=== PATIENT | male | born 1975 | race American Indian/Alaskan Native ===

== ENCOUNTER 2016-09-30 12:30 | Inpatient (IN) | payer OTHER ==
[2016-09-30] MEDS ORDERED: Albuterol-Ipratrop 3 mg / 0.5 (3 ml) UD IH STA ×2 (12:32→15:18)
[2016-09-30] MEDS ORDERED: Magnesium Sulfate 2 GM in Sodium Chloride 0.9% 100 ML IVPB ONE (12:33)
[2016-09-30] MEDS ORDERED: EPINEPHrine 1 mg/ml (1:1000) Inj ONE (12:33)
[2016-09-30] MEDS ORDERED: EPINEPHrine 1 mg/ml (1:1000) Inj SC STA (12:34)
[2016-09-30] MEDS ORDERED: Levalbuterol 1.25 MG/3 ML Inhal Soln UD IH STA (12:34)
[2016-09-30] MEDS ORDERED: Ipratropium 0.02% Inhal Soln (0.5 mg/2.5 ml) UD IH STA (12:34)
[2016-09-30] MEDS ORDERED: Albuterol-Ipratrop 3 mg / 0.5 (3 ml) UD ONE (12:35)
[2016-09-30] MEDS ORDERED: Sodium Chloride 0.9% 1,000 ML IV STA ×2 (12:36→16:20)
[2016-09-30 12:40] VITALS: BMI 24.3
[2016-09-30] MEDS ORDERED: Etomidate 20 mg/10ml Inj IV ONE (12:41)
[2016-09-30] MEDS ORDERED: Succinylcholine 200 mg/10 ml Inj IV ONE (12:42)
--- NOTE | 2016-09-30 12:43 | ED PDOC ---
Arrival/HPI - General Time Seen by Provider: 09/30/16 12:31 Historian: Patient - History of Present Illness Narrative History of Present Illness (Text): 09/30/16 12:40 A 41 year old male, whose past medical history includes asthma and heroin use, was brought into the emergency department by EMS for worsening shortness of breath since last night. Patient notes associated chest tightness and non- productive cough. Patient notes subjective fevers, nausea, non-bilious non- bloody vomiting and abdominal discomfort. Patient admits to sniffing heroin earlier this morning. Patient denies any diarrhea, urinary symptoms, headache, dizziness, suicidal ideation, homicidal ideation or any other complaints. Time/Duration: Other (Last night) Symptom Course: Worsening Quality: Other Context: Home Past Medical History - Provider Review Nursing Documentation Reviewed: Yes Family/Social History - Physician Review Nursing Documentation Reviewed: Yes Family/Social History: No Known Family HX Allergies/Home Meds Allergies/Adverse Reactions: Allergies No Known Allergies Allergy (Unverified 09/30/16 12:32) Home Medications: Home Meds Medication Instructions Recorded Confirmed Albuterol Sulfate [Proventil Hfa] 0.09 mg IH PRN PRN 09/30/16 09/30/16 Review of Systems - Physician Review All systems were reviewed & negative as marked: Yes - Review of Systems Constitutional: Fevers Eyes: absent: Vision Changes ENT: Normal Respiratory: SOB, Cough. absent: Sputum Cardiovascular: Chest Pain Gastrointestinal: Abdominal Pain, Nausea, Vomiting. absent: Diarrhea Genitourinary Male: absent: Dysuria, Frequency, Hematuria, Urinary Output Changes Neurological: absent: Headache, Dizziness Psychiatric: absent: Suicidal Ideation (/homicidal ideation) Physical Exam Vital Signs Temp Pulse Resp BP Pulse Ox 09/30/16 14:01 98.7 F 124 H 18 143/80 100 09/30/16 13:15 128 H 14 126/81 100 09/30/16 12:32 17 09/30/16 12:31 135 H 22 183/113 H 95 Temperature: Afebrile Blood Pressure: Hypertensive Pulse: Tachycardic Respiratory Rate: Tachypneic Appearance: Positive for: Ill-Appearing, Uncomfortable, Other (Severely diaphoretic and tachypneic, unable to speak full sentences) Pain Distress: None Mental Status: Positive for: Alert and Oriented X 3 - Systems Exam Head: Present: Atraumatic, Normocephalic Pupils: Present: PERRL Conjunctiva: Present: Normal Mouth: Present: Moist Mucous Membranes Pharnyx: Present: Normal. No: ERYTHEMA, EXUDATE Respiratory/Chest: Present: Respiratory Distress, Accessory Muscle Use, Wheezes (Diffuse wheezing), Decreased Breath Sounds, Retracting, Tachypneic. No: Good Air Exchange (Very poor air entry) Cardiovascular: Present: Normal S1, S2, Tachycardic. No: Murmurs Abdomen: Present: Normal Bowel Sounds. No: Tenderness, Distention, Peritoneal Signs Upper Extremity: Present: Normal Inspection. No: Cyanosis, Edema Lower Extremity: Present: Normal Inspection. No: Edema Neurological: Present: GCS=15, CN II-XII Intact Skin: Present: Warm, Normal Color, Diaphoretic. No: Rashes Psychiatric: Present: Alert, Oriented x 3, Anxious (anxiety appropriate for acuity of medical condition.) Medical Decision Making ED Course and Treatment: 09/30/16 12:40 Impression: A 41 year old male with shortness of breath, cough and chest tightness. Patient notes subjective fever, nausea, vomiting, and abdominal pain. On exam, there is poor entry with diffuse wheezing, tachypnea, tachycardia and severely diaphoretic. Differential Diagnosis included but are not limited to: Asthma exacerbation vs. pneumonia Plan: -- Chest xray -- EKG -- Labs -- Blood culture -- Urinalysis -- Duoneb, Epinephrine, Pepcid, Atrovent, Xopenex, Magnesium sulfate, Solumedrol , Zofran and IV fluids -- Reassess and disposition Progress Notes: PROCEDURE: INTUBATION Performed by the emergency provider Time: 12:49 Timeout: A timeout to verify the correct patient, procedure, and site was performed. Indication: Severely poor air entry Pre-oxygenation: 100% NRB / Bipap for several minutes (not tolerating) Medications: etomidate 20mg / succinylcholine 100 mg ETT Size: 8 Confirmation: Cords directly visualized as tube passed, good bilateral breath sounds, positive CO2 detector color change, tube fogging, adequate chest rise, improving pulse oximetry reading, improved skin color, and absence of gastric sounds. ETT Secured: The cuff was inflated and the tube was secured appropriately at a distance of 23 cm at the lip. Post-Procedure: There were no immediate complications. CXR Confirmation: Yes 09/30/16 12:56 EKG shows sinus tachycardia at 150 BPM with a right axis deviation, nonspecific ST/T changes, right QTc 518. Interpreted by me. Report Date : 09/30/2016 13:22:02 Procedure: Chest xray Dictator : Marc England MD IMPRESSION: In situ ETT, tip of which lies approximately 6.2 cm above dinh. Questionable minimal linear atelectasis left lower lung field. Lung katz are otherwise clear. 09/30/16 14:26 Patient's history is noted presenting with severe asthma exacerbation; given epi , magnesium, and nebs upon presentation, along with solumedrol. Bipap placed and within minutes, patient's respiratory status continued to decline and tiring out. Decision made to intubate patient. ETT tube procedure noted above. Case was discussed with groundwater monitoring technician physician, Dr. Echols, who will admit the patient to his service. Case discussed with Dr. Doll, who will admit the patient to the ICU. - Critical Care Critical Care Minutes: 30 minutes - RAD Interpretation Radiology Orders: 09/30/16 12:35 CHEST PORTABLE [RAD] Stat - Medication Orders Current Medication Orders: Albuterol/Ipratropium (Duoneb 3 Mg/0.5 Mg (3 Ml) Ud) 3 ml IH Q4H [facility] Last Admin: 09/30/16 14:18 Dose: 3 ml Heparin Sodium (Porcine) (Heparin) 5,000 units SC Q8H JOBY PRN Reason: Protocol Last Admin: 09/30/16 14:22 Dose: 5,000 units Propofol (Diprivan) 1,000 mg in 100 mls @ 2.245 mls/hr IV .Q24H PRN; Protocol; 5 MCG/KG/MIN PRN Reason: Agitation Last Admin: 09/30/16 13:30 Dose: 66.8 mcg/kg/min, 29.997 mls/hr Methylprednisolone (Solu-Medrol) 40 mg IVP Q8H [facility] Last Admin: 09/30/16 14:20 Dose: Pantoprazole Sodium (Protonix Inj) 40 mg IVP DAILY [facility] Last Admin: 09/30/16 14:22 Dose: 40 mg Discontinued Medications Albuterol/Ipratropium (Duoneb 3 Mg/0.5 Mg (3 Ml) Ud) 3 ml IH STAT STA Stop: 09/30/16 12:33 Last Admin: 09/30/16 13:00 Dose: 3 ml Albuterol/Ipratropium (Duoneb 3 Mg/0.5 Mg (3 Ml) Ud) Confirm Administered Dose 9 ml .ROUTE .STK-MED ONE Stop: 09/30/16 12:36 Last Admin: 09/30/16 13:00 Dose: 9 ml Epinephrine HCl (Epinephrine) 0.3 mg SC STAT STA Stop: 09/30/16 12:35 Last Admin: 09/30/16 13:00 Dose: 0.3 mg Etomidate (Amidate) Confirm Administered Dose 20 mg IV .STK-MED ONE Stop: 09/30/16 12:42 Last Admin: 09/30/16 13:12 Dose: Famotidine (Pepcid) 20 mg IVP STAT STA Stop: 09/30/16 12:35 Last Admin: 09/30/16 13:03 Dose: 20 mg Magnesium Sulfate 2 gm/ Sodium (Chloride) 104 mls @ 102 mls/hr IVPB ONCE ONE Stop: 09/30/16 13:34 Last Admin: 09/30/16 13:05 Dose: 102 mls/hr Sodium Chloride (Sodium Chloride 0.9%) 1,000 mls @ 999 mls/hr IV .Q1H1M STA Stop: 09/30/16 13:36 Last Admin: 09/30/16 13:07 Dose: 999 mls/hr Propofol (Diprivan) Confirm Administered Dose 1,000 mg in 100 mls @ ud .ROUTE .STK-MED ONE Stop: 09/30/16 12:50 Last Admin: 09/30/16 13:00 Dose: 30 mg Ipratropium [place] (Atrovent) 0.5 mg IH STAT STA Stop: 09/30/16 12:35 Last Admin: 09/30/16 13:00 Dose: 0.5 mg Levalbuterol HCl (Xopenex) 1.25 mg IH STAT STA Stop: 09/30/16 12:35 Last Admin: 09/30/16 13:05 Dose: 1.25 mg Methylprednisolone (Solu-Medrol) 125 mg IVP STAT STA Stop: 09/30/16 12:33 Last Admin: 09/30/16 13:00 Dose: 125 mg Ondansetron HCl (Zofran Inj) 4 mg IVP STAT STA Stop: 09/30/16 12:35 Last Admin: 09/30/16 13:00 Dose: 4 mg Succinylcholine Chloride (Quelicin) Confirm Administered Dose 200 mg IV .STK- MED ONE Stop: 09/30/16 12:43 Last Admin: 09/30/16 13:06 Dose: 200 mg - Scribe Statement The provider has reviewed the documentation as recorded by the Brigid Ring Provider Scribe Attestation: All medical record entries made by the Brigid were at my direction and personally dictated by me. I have reviewed the chart and agree that the record accurately reflects my personal performance of the history, physical exam, medical decision making, and the department course for this patient. I have also personally directed, reviewed, and agree with the discharge instructions and disposition. Disposition/Present on Arrival - Present on Arrival Any Indicators Present on Arrival: No - Disposition Have Diagnosis and Disposition been Completed?: Yes Diagnosis: Asthma exacerbation Disposition: HOSPITALIZED Disposition Time: 12:49 Patient Plan: Admission, ICU Condition: CRITICAL
[2016-09-30] MEDS ORDERED: Propofol 10 mg/ml 1,000 MG/100 ML VIAL ONE (12:49)
[2016-09-30 13:06] LABS: ADD MANUAL DIFF? NO
[2016-09-30 13:17] LABS: BASO # 0.05 K/mm3 (0.0-2.0); BASO % 0.4 % (0.0-3.0); EOS # 0.7 (0.0-0.7); EOS % 6.2 % (1.5-5.0); GRAN % 59.6 % (50.0-68.0); HEMATOCRIT 45.5 % (42.0-52.0); LYMPH # 3.3 (1.2-3.4); LYMPH % 27.3 % (22.0-35.0); MEAN CORPUSCULAR HEMOGLOBIN 31.9 pg (25.0-35.0); MEAN CORPUSCULAR HGB CONC 33.6 g/dl (31.0-37.0); MEAN PLATELET VOLUME 9.2 fl (7.0-11.0); MONO # 0.8 (0.1-0.6); MONO % 6.5 % (1.0-6.0); PLATELET COUNT 424 10^3/uL (120.0-450.0); RED CELL DISTRIBUTION WIDTH 12.2 % (11.5-14.5); WHITE BLOOD COUNT 11.9 10^3/ul (4.5-11.0)
--- NOTE | 2016-09-30 13:23 | RAD ---
HISTORY: sob COMPARISON: No prior. FINDINGS: LUNGS: In situ ETT, tip of which lies approximately 6.2 cm above dinh. Questionable minimal linear atelectasis left lower lung field. Lung katz are otherwise clear. PLEURA: No significant pleural effusion identified, no pneumothorax apparent. CARDIOVASCULAR: Normal. OSSEOUS STRUCTURES: No significant abnormalities. VISUALIZED UPPER ABDOMEN: Normal. OTHER FINDINGS: None. IMPRESSION: In situ ETT, tip of which lies approximately 6.2 cm above dinh. Questionable minimal linear atelectasis left lower lung field. Lung katz are otherwise clear.
[2016-09-30 13:32] LABS: URINE BILIRUBIN NEGATIVE (NEGATIVE); URINE BLOOD TRACE-INTACT (NEGATIVE); URINE GLUCOSE (UA) NEGATIVE (NEGATIVE); URINE KETONE NEGATIVE (NEGATIVE); URINE LEUKOCYTE ESTERASE NEGATIVE Leu/uL (NEGATIVE); URINE PROTEIN TRACE mg/dL (<30 mg/dL); URINE UROBILINOGEN 0.2 E.U./dL (<1 E.U./dL)
[2016-09-30 13:32] LABS: ARTERIAL BLOOD GAS HCO3 29.6 mmol/L (21-28)
[2016-09-30 13:32] LABS: INR 1.07 (0.93-1.08)
[2016-09-30 13:33] LABS: ARTERIAL BLOOD GAS PH 7.08 (7.35-7.45)
[2016-09-30 13:48] LABS: URINE APPEARANCE CLEAR (CLEAR); URINE COLOR YELLOW (YELLOW)
[2016-09-30 13:50] LABS: ALB/GLOB RATIO 1.2 (1.1-1.8); ALKALINE PHOSPHATASE 54 U/L (38-133); ALT/SGPT 30 U/L (7-56); AST/SGOT 24 U/L (15-59); BILIRUBIN,TOTAL 0.6 mg/dL (0.2-1.3); BLOOD UREA NITROGEN 11 mg/dL (7-21); CALCIUM 8.3 mg/dL (8.4-10.5); CARBON DIOXIDE 27 mmol/L (21-33); CHLORIDE 103 mmol/L (98-107); GFR AFRICAN-AMERICAN > 60; GLUCOSE,RANDOM 221 mg/dL (70-110); LIPASE 24 U/L (23-300); POTASSIUM 4.5 mmol/L (3.6-5.0); SODIUM 139 mmol/L (132-148); TOTAL PROTEIN 7.3 g/dL (5.8-8.3)
[2016-09-30 13:50] LABS: URINE BACTERIA FEW (NEG); URINE EPITHELIAL CELLS 0 - 2 /hpf (0-5); URINE RBC 0 - 2 /hpf (0-2); URINE WBC 0 - 2 /hpf (0-6)
[2016-09-30] MEDS ORDERED: Propofol 10 mg/ml 1,000 MG/100 ML VIAL IV PRN (13:53)
[2016-09-30] MEDS ORDERED: Albuterol-Ipratrop 3 mg / 0.5 (3 ml) UD IH SCH (14:00)
[2016-09-30 14:01] LABS: TROPONIN I < 0.01 ng/mL
[2016-09-30] MEDS: MethylPREDNISolone 40 mg Vial IVP SCH ×2 (14:20→21:18)
[2016-09-30] MEDS: Propofol 10 mg/ml 1,000 MG/100 ML VIAL IV PRN ×3 (15:52→21:56)
--- NOTE | 2016-09-30 16:08 | PN ---
DATE: 09/30/2016 The patient is a 41-year-old gentleman with a history of drug abuse and asthma who presented with severe respiratory distress and was intubated for impending respiratory failure almost immediately in the Emergency Room. He was sedated with propofol and currently is on PRVC with PEEP 5, FiO2 50%, respiratory rate 18, Vt 400. His initial ABG showed severe acute respiratory acidosis with pCO2 approaching 100 and pH 7.08. Apparently, the patient was snorting heroin prior to current admission. No other history is available. It appears that the patient did not have any nausea, vomiting, diarrhea, constipation, chest pain. PAST MEDICAL HISTORY: Asthma. FAMILY HISTORY: Noncontributory. SOCIAL HISTORY: The patient is snorting heroin. HOME MEDICATIONS: Albuterol. ALLERGIES: NKDA. REVIEW OF SYSTEMS: Review of 12 organ system other than mentioned in history of present illness is negative. Chest x-ray: Hyperinflated lungs. No distinct infiltrate. PHYSICAL EXAMINATION: VITAL SIGNS: Temperature 98.7, heart rate 124 (patient is getting continuous nebulizers), blood pressure 143/80, respiratory rate 18, oxygen saturation 100% on mechanical ventilation. HEAD AND NECK: Atraumatic. LUNGS: Scattered and abundant wheezes bilaterally. Ppeak 57, Ppl20-->continue nebs HEART: Regular rate and rhythm. S1, S2 normal. ABDOMEN: Soft, nontender, nondistended. MUSCULOSKELETAL: No C/C/E. NEUROLOGIC: The patient moves all extremities spontaneously. SKIN: Moist. PSYCHIATRIC: The patient is sedated. LABORATORY DATA: WBC 11.9, hemoglobin 15.3, platelet count 424. Sodium 139, potassium 4.5, chloride 103, carbon dioxide 27, BUN 11, creatinine 0.9, glucose 221. AST 24, ALT 30. Troponin less than 0.01. U-tox screen positive for opiates and negative for methadone, barbiturate, PCP, amphetamines, benzodiazepines, cocaine and cannabinoids. ASSESSMENT AND PLAN: This 41-year-old gentleman with status asthmaticus requiring intubation triggered by snorting heroin. At the present time, will proceed with steroids, nebulizers (DuoNeb initially continuously then every 2 hours and then every 4 hours). There are no signs of infection. The patient is afebrile and no distinct infiltrate in the chest x-ray. I will obtain blood culture, urine culture, and procalcitonin; however, we will not start antibiotics empirically. It appears that snorting heroin was a triggering factor for current asthma attack. In terms of ventilator settings, we will avoid hyperventilation to avoid airtrapping, barotrauma, decrease venous return and hypotension. Will continue with of PEEP of 5. We will make sure that I:E ratio remains more than 1:2.5. Will continue with Propofol sedation and add Precedex to improve pt/vent synchrony. Will repeat the ABG in a couple hours and will follow chest x-ray as well. Will continue with IVF. Will continue to target euvolemia, euglycemia, normothermia and oxygen saturation more than 90%. Will continue with DVT and GI prophylaxis. Will continue with daily weaning trial and daily sedation vacation. Will continue with head of bed elevated more than 35 degrees and protective lung ventilation strategy. ccm time 40 min Wade Doll MD cc: [id number] TT: 09/30/2016 16:07:06 Confirmation # [id number] Dictation # [id number] mn MICHAEL
[2016-09-30 16:20] LABS: ABG MECHANICAL RATE 18; ARTERIAL BLOOD GAS HCO3 28.6 mmol/L (21-28); ATERIAL BLOOD GAS PEEP 5
[2016-09-30 16:23] LABS: ARTERIAL BLOOD GAS PH 7.14 (7.35-7.45)
[2016-09-30] MEDS: Dexmedetomidine HCl 4mcg/ml 400 MCG/100 ML BOTTLE IV PRN (16:25)
[2016-09-30] MEDS: Albuterol-Ipratrop 3 mg / 0.5 (3 ml) UD IH SCH ×4 (19:50→23:49)
[2016-09-30] MEDS: Sodium Chloride 0.9% 1,000 ML IV SCH (20:02)
[2016-09-30 20:19] LABS: ARTERIAL BLOOD GAS O2 CAPACITY 18.8 mL/dl (16-24); ARTERIAL BLOOD GAS O2 CONTENT 18.3 ML/dl (15-23); ARTERIAL BLOOD GAS PH 7.27 (7.35-7.45); ARTERIAL BLOOD HGB O2 SAT 94.2 % (95.0-98.0); CARBOXYHEMOGLOBIN 2.3 % (0.5-1.5); HHB 2.7 % (0-5); METHEMOGLOBIN 0.8 % (0.0-3.0)
--- NOTE | 2016-09-30 22:20 | CARD ---
APPROVED REPORT EKG Measurement Heart [id number] PA [id number] <Conclusion> Sinus tachycardia Biatrial enlargement Rightward axis Pulmonary disease pattern Nonspecific ST and T wave abnormality Abnormal ECG
[2016-10-01] MEDS: Propofol 10 mg/ml 1,000 MG/100 ML VIAL IV PRN ×3 (01:38→12:37)
[2016-10-01] MEDS: Albuterol-Ipratrop 3 mg / 0.5 (3 ml) UD IH SCH ×7 (01:49→23:30)
[2016-10-01] MEDS: Dexmedetomidine HCl 4mcg/ml 400 MCG/100 ML BOTTLE IV PRN ×2 (02:46→12:38)
[2016-10-01] MEDS: Sodium Chloride 0.9% 1,000 ML IV SCH ×3 (03:49→19:34)
[2016-10-01] MEDS: MethylPREDNISolone 40 mg Vial IVP SCH (05:16)
[2016-10-01 05:40] LABS: ARTERIAL BLOOD GAS HCO3 27.3 mmol/L (21-28); ARTERIAL BLOOD GAS O2 CAPACITY 17.2 mL/dl (16-24); ARTERIAL BLOOD GAS PH 7.32 (7.35-7.45); ARTERIAL BLOOD HGB O2 SAT 96.4 % (95.0-98.0); CARBOXYHEMOGLOBIN 1.5 % (0.5-1.5)
[2016-10-01 06:10] LABS: ADD MANUAL DIFF? NO
[2016-10-01 06:21] LABS: GRAN # 11.36 (1.4-6.5); GRAN % 84.3 % (50.0-68.0); HEMATOCRIT 37.2 % (42.0-52.0); LYMPH # 0.8 (1.2-3.4); LYMPH % 5.9 % (22.0-35.0); MEAN CELL VOLUME 94.4 fL (80.0-105.0); MEAN CORPUSCULAR HEMOGLOBIN 31.5 pg (25.0-35.0); MEAN CORPUSCULAR HGB CONC 33.3 g/dl (31.0-37.0); MEAN PLATELET VOLUME 8.9 fl (7.0-11.0); MONO # 1.3 (0.1-0.6); MONO % 9.8 % (1.0-6.0); PLATELET COUNT 318 10^3/uL (120.0-450.0); RED CELL DISTRIBUTION WIDTH 12.2 % (11.5-14.5); WHITE BLOOD COUNT 13.5 10^3/ul (4.5-11.0)
[2016-10-01 06:45] LABS: ALB/GLOB RATIO 1.1 (1.1-1.8); ALKALINE PHOSPHATASE 43 U/L (38-133); ALT/SGPT 32 U/L (7-56); AST/SGOT 27 U/L (15-59); BILIRUBIN,TOTAL 0.3 mg/dL (0.2-1.3); BLOOD UREA NITROGEN 11 mg/dL (7-21); CALCIUM 8.3 mg/dL (8.4-10.5); CARBON DIOXIDE 27 mmol/L (21-33); CHLORIDE 105 mmol/L (98-107); GFR AFRICAN-AMERICAN > 60; GLUCOSE,RANDOM 137 mg/dL (70-110); POTASSIUM 4.8 mmol/L (3.6-5.0); SODIUM 138 mmol/L (132-148); TOTAL PROTEIN 6.4 g/dL (5.8-8.3)
--- NOTE | 2016-10-01 07:35 | CON ---
DATE: 10/01/2016 REASON FOR CONSULTATION: Asthma. REFERRING PHYSICIAN: Dr. Echols. History is obtained via extensive discussion with the ICU nurse. I have also reviewed the chart at length. The patient is currently intubated and sedated. The patient is a 41-year-old male with past medical history significant for asthma, heroin abuse, who presented to the Emergency Room yesterday in respiratory distress. Apparently, shortly after sniffing heroin, the patient started to experience increasing shortness of breath at rest, dyspnea on exertion, and cough. There is no history of sputum production. There is a history of chest "tightness." No history of chest pain, coughing up of blood or chest pain - made worse with deep respirations. There is no history of temperatures, chills or infectious exposure. There is no history of night sweats, weight loss or appetite change prior to the above events. No history of leg or calf pains. No history of syncope. The patient was diaphoretic upon presentation to the Emergency Room. No history of travel or trauma. REVIEW OF SYSTEMS: There is a history of nausea and vomiting at home. No diarrhea. No acute urinary symptoms. No new musculoskeletal complaints. Rest of the review of systems is negative. ALLERGIES: No known allergies. SOCIAL HISTORY: Negative for tobacco, negative for alcohol. Positive for heroin abuse. FAMILY HISTORY: Positive for asthma. HOME MEDICATIONS: Include Proventil HFA. PHYSICAL EXAMINATION: GENERAL: The patient is currently intubated and sedated. VITAL SIGNS: Temperature is 99.1, pulse 105, respirations 21/20, blood pressure 94/50. Oxygen saturation on the ventilator is 98%. HEENT: Normocephalic, atraumatic. NECK: No JVD. CARDIOVASCULAR: Positive S1, S2. No S3. LUNGS: Decreased breath sounds at the bases. Scattered bilateral rhonchi and wheezing are appreciated. EXTREMITIES: No clubbing, cyanosis, or edema. GASTROINTESTINAL: Abdomen is soft, nondistended. Bowel sounds are positive. SKIN: No acute rash. NEUROLOGIC: Limited at the present time. PERTINENT LABORATORY DATA: Chest x-ray was done this morning and reviewed. It is not significantly changed from the previous film. There are no significant infiltrates. Official reading - pending. Arterial blood gas was done on assist control of 20, tidal volume 350, FiO2 50%, PEEP of 5. Results are: pH 7.32, pCO2 53, pO2 of 112. CBC: White count 11.9, hemoglobin 15.3, hematocrit 45.5, platelets of 424. Complete metabolic profile: Glucose 221, calcium 8.3. Rest of the metabolic profile is within normal limits. IMPRESSION: 1. Respiratory failure. 2. Status asthmaticus. 3. Acute bronchospasm. 4. Heroin abuse. PLAN: Again, I did discuss the case with the ICU nurse at length. I have also reviewed the chart at length. Apparently, the patient presented to the Emergency Room - shortly after sniffing heroin. On presentation to the Emergency Room, he was in respiratory distress and using accessory muscles for breathing. In addition, the arterial blood gas revealed a severe respiratory acidosis. He was, thus, intubated for airway protection and ventilation. I did review the chest x-ray this morning. It is not significantly changed from yesterday's film, and shows no significant infiltrates. I have also reviewed the arterial blood gas. A significant decrease in the respiratory acidosis is noted. On physical exam, the patient is in moderate bronchospasm. I would continue with the frequent nebulizer treatments and intravenous steroids for now. Repeat a.m. labs are pending. Again, I did discuss the case with the ICU nurse at length. The ICU nurse states that the patient's clinical status is much improved this morning. I will discuss the above with the entire ICU team in the next few moments. I will also discuss the above with Dr. Echols. Thank you very much for this pulmonary consultation. Juan Tate MD cc: [id number] TT: 10/01/2016 07:34:17 Confirmation # [id number] Dictation # [id number] alina RODRIGUEZ
[2016-10-01] MEDS: Insulin Reg-HIGH-Coverage SC SCH ×4 (08:00→21:55)
--- NOTE | 2016-10-01 08:15 | HP ---
I was in the Emergency Room on 09/30. I was called by the ER doctor for admission on the patient. I was there with the carpenter helper maintenance, Dr. Doll, and when I went home to try and dictate, I could not ge t my computer to work to get the information, so I am dictating this morning, 10/01. He is a 41-year-o ld man who, when I got to him, was intubated, with asthma and heroin use. He had a nonproductive cou gh with chest tightness. He has fevers, nausea, nonbilious vomiting. He was sniffing heroin earlier that day. PAST MEDICAL HISTORY: Drug abuse. FAMILY HISTORY: No known family history. ALLERGIES: No known drug allergies. MEDICATIONS: He takes albuterol p.r.n. at home. REVIEW OF SYSTEMS: On the ventilator, difficult to do review of systems. Review of systems by the E R doctor before he was intubated: There are no vision changes. There is shortness of breath with co ughing. He had chest pain. He had abdominal pain, nausea, vomiting. No problems urinating. No hea dache. No suicidal ideation. PHYSICAL EXAMINATION: VITAL SIGNS: He had a 98.7 temp, 135 pulse, 18 respiratory rate to 22 respiratory rate, 183/113 bloo d pressure, 95% O2 sat to100% O2 sat. GENERAL: Head atraumatic, normocephalic. He is on a ventilator. LUNGS: Decreased breath sounds bilaterally, on the ventilator. HEART: Regular rate. ABDOMEN: Soft, positive bowel sounds. EXTREMITIES: Have no edema. SKIN: Intact and warm. NEUROLOGIC: He is intubated. LABORATORY DATA: He had an 11.9 white count, 15.2, hemoglobin, 45.5 hematocrit with 424 platelets. INR is 1.07. He was 7.08, very acidotic on admission 139 sodium, potassium 4.5, BUN 11, creatinine 0 .9, GFR is greater than 60, sugar is 221, calcium is 8.3, total bili is 0.6. AST is 24, ALT is 30, a lk phos 54. Lactate dehydrogenase is 207, troponin is less than 0.01. BNP is 22.5, total protein 7. 3, albumin is 4. He is positive for opiates and said he was inhaling heroin earlier. He will have a consult with pulmonary. He is currently on Diprivan, DuoNeb, heparin, Precedex, Mary nix, IV fluids, Solu-Medrol. He is seen by the carpenter helper maintenance. He is here for asthma, respiratory fail ure, drug abuse. We will check his labs in the morning. Hopefully, we can wean him off the ventilat or in the next 24-48 hours. Brando Echols DO cc: [id number] TT: 10/01/2016 08:15:32 tn
--- NOTE | 2016-10-01 08:22 | PN ---
DATE: 10/01/2016 The patient seen and examined at bedside. He is sedated on propofol and Precedex 0.5 mcg per kilogram per hour. Propofol was just shut off and the patient continued to be on Precedex. He is comfortable, and we are waiting for him to wake up more. PHYSICAL EXAMINATION: VITAL SIGNS: Heart rate 93, oxygen saturation 98%, end-tidal CO2 on the monitor 38, blood pressure 111/59. The patient is on PRVC 450/20/5/50%. HEAD AND NECK: Atraumatic. LUNGS: A few wheezes bilaterally, much better than yesterday. HEART: Regular rate and rhythm. S1, S2 normal. ABDOMEN: Soft, nontender, nondistended. MUSCULOSKELETAL: No C/C/E. NEUROLOGIC: The patient moves all extremities spontaneously. SKIN: Moist. PSYCHIATRIC: The patient is alert and oriented x 3. LABORATORY DATA: WBC 13.5, hemoglobin 12.4, platelet count 318. Sodium 138, potassium 4.8, chloride 105, carbon dioxide 27, BUN 11, creatinine 0.9, glucose 137. AST 27, ALT 32. ABG today 7.32/53/112. MEDICATIONS: DuoNeb every 4, heparin 5000 subQ q. 8, Solu-Medrol 60 mg IV q. 6 , Protonix daily, normal saline 125 mL per hour. ASSESSMENT AND PLAN: This is a 41-year-old gentleman with status asthmaticus, now intubated. Chest x-ray does not show signs of any barotrauma. He is hemodynamically stable. At present time, we will proceed with steroid taper, nebulizers. We will continue with daily chest x-ray and ABGs. His respiratory status improved; however, he still has significant bronchospasm. We will continue with ventilator setting that allows I:E ratio more than 1:2.5. Will continue with PEEP of 5. Will continue with protective lung ventilation strategy. Will continue with euvolemia, euglycemia, normothermia and oxygen saturation more than 90%. If unable to wean today, will start enteral nutrition (trophic). Will continue with DVT and GI prophylaxis. Will continue with head of bed elevated more than 35 degrees. Addendum: patient substantially improved, bronchospasm resolved, extubated to BPAP. Cont Precedex for now but will be weaned off. BP, HR, RR comfortable and stable ccm time 40 min Wade Doll MD cc: [id number] TT: 10/01/2016 08:22:20 Confirmation # [id number] Dictation # [id number] mn MTDD
--- NOTE | 2016-10-01 09:01 | RAD ---
HISTORY: follow up COMPARISON: 09/30/2016 FINDINGS: The endotracheal tube terminates 4.5 cm proximal to the dinh. LUNGS: The lungs are well inflated and clear. PLEURA: No significant pleural effusion identified, no pneumothorax apparent. CARDIOVASCULAR: Normal. OSSEOUS STRUCTURES: No significant abnormalities. VISUALIZED UPPER ABDOMEN: Normal. OTHER FINDINGS: None. IMPRESSION: No acute findings. Endotracheal tube terminates 4.5 cm proximal to the dinh.
--- NOTE | 2016-10-01 09:04 | PN ---
DATE: 10/01/2016 I saw him in the intensive care unit. He is still on the ventilator. He is on Diprivan, DuoNebs, in sulin coverage, Precedex, Protonix, IV fluids and Solu-Medrol. They bumped him up to 60 mg IV q. 6. PHYSICAL EXAMINATION: VITAL SIGNS: Temp 99.1, 105 pulse, 21 respiratory rate, 98% O2 sat on mechanical ventilator. HEENT: His head is atraumatic, normocephalic. HEART: Regular rate. LUNGS: Decreased breath sounds, but clear. ABDOMEN: Soft. EXTREMITIES: No edema. LABORATORY DATA: He has a 13.5 white count, could be from the steroids, 12.4 hemoglobin, 37.2 hemato crit with 318 platelets. Sodium 138, potassium 4.8, BUN 11, creatinine 0.9, GFR is greater than 60, sugar is 137, calcium is 8.3, total bili is 0.3, AST is 27, ALT is 32, alk phos 43, total protein 6.4 . He was positive for opiates. He is being seen by the roll over press operator and the paper tester. There is a chest x-ray pending. He is here for respiratory failure, asthma, acute bronchospasm, heroin use. We will continue with aggressive treatment and care. Check his labs tomorrow. Hopefully, we could w rory him in the next 24 hours. Discussed with the roll over press operator and the paper tester at length. Brando Echols DO cc: [id number] TT: 10/01/2016 09:04:12 Confirmation # [id number] Dictation # [id number] tn
[2016-10-01 15:17] LABS: ARTERIAL BLOOD GAS HCO3 27.7 mmol/L (21-28); ARTERIAL BLOOD GAS O2 CAPACITY 16.9 mL/dl (16-24); ARTERIAL BLOOD GAS O2 CONTENT 16.2 ML/dl (15-23); ARTERIAL BLOOD GAS PH 7.46 (7.35-7.45); ARTERIAL BLOOD HGB O2 SAT 93.7 % (95.0-98.0); CARBOXYHEMOGLOBIN 1.5 % (0.5-1.5); HHB 3.8 % (0-5); METHEMOGLOBIN 0.9 % (0.0-3.0)
--- NOTE | 2016-10-01 15:26 | CARD ---
APPROVED REPORT EXAM: Two-dimensional and M-mode echocardiogram with Doppler and color Doppler. INDICATION Congestive Heart Failure Aortic Valve AoV Peak Jhqljpwh861.0cm/Marleny Peak GR.5mmHg Mitral Valve MV E Sdbegnjh47.0cm/sMV A Fadywpmk97.2cm/sE/A ratio1.1 TDI E/Lateral E'0.0E/Medial E'0.0 LEFT VENTRICLE The left ventricle is normal size. There is normal left ventricular wall thickness. The systolic function is severely impaired. The Ejection Fraction is 25-30%. Infero-lateral hypokinesis Transmitral Doppler flow pattern is Grade I-abnormal relaxation pattern. No left ventricle thrombus noted on this study. RIGHT VENTRICLE The right ventricle is normal size. There is normal right ventricular wall thickness. The right ventricular systolic function is normal. ATRIA The left atrium size is normal. The right atrium size is normal. AORTIC VALVE The aortic valve is not well visualized. MITRAL VALVE The mitral valve is not well visualized. GREAT VESSELS The aortic root is normal in size. The IVC is dilated. PERICARDIAL EFFUSION There is no pericardial effusion. <Conclusion> The left ventricle is normal size. There is normal left ventricular wall thickness. The systolic function is severely impaired. The Ejection Fraction is 25-30%. Infero-lateral hypokinesis Transmitral Doppler flow pattern is Grade I-abnormal relaxation pattern. No left ventricle thrombus noted on this study.
[2016-10-01] MEDS ORDERED: Morphine 2 mg/ml ISec IVP STA (19:53)
[2016-10-02] MEDS ORDERED: Morphine 2 mg/ml ISec IVP STA (01:02)
[2016-10-02] MEDS: Sodium Chloride 0.9% 1,000 ML IV SCH (04:35)
[2016-10-02] MEDS: Albuterol-Ipratrop 3 mg / 0.5 (3 ml) UD IH SCH ×5 (04:56→19:40)
[2016-10-02 05:38] LABS: ARTERIAL BLOOD GAS HCO3 27.6 mmol/L (21-28); ARTERIAL BLOOD GAS O2 CAPACITY 16.8 mL/dl (16-24); ARTERIAL BLOOD GAS O2 CONTENT 16.1 ML/dl (15-23); ARTERIAL BLOOD GAS PH 7.48 (7.35-7.45); ARTERIAL BLOOD HGB O2 SAT 93.8 % (95.0-98.0); CARBOXYHEMOGLOBIN 1.7 % (0.5-1.5); METHEMOGLOBIN 0.5 % (0.0-3.0)
[2016-10-02 06:22] LABS: ADD MANUAL DIFF? NO
[2016-10-02 06:32] LABS: BASO # 0.04 K/mm3 (0.0-2.0); BASO % 0.3 % (0.0-3.0); GRAN # 11.42 (1.4-6.5); GRAN % 86.3 % (50.0-68.0); HEMATOCRIT 39.7 % (42.0-52.0); LYMPH # 0.8 (1.2-3.4); LYMPH % 6.1 % (22.0-35.0); MEAN CORPUSCULAR HEMOGLOBIN 31.6 pg (25.0-35.0); MONO % 7.3 % (1.0-6.0); PLATELET COUNT 340 10^3/uL (120.0-450.0); RED CELL DISTRIBUTION WIDTH 11.5 % (11.5-14.5); WHITE BLOOD COUNT 13.2 10^3/ul (4.5-11.0)
[2016-10-02 06:41] LABS: ALB/GLOB RATIO 1.2 (1.1-1.8); ALKALINE PHOSPHATASE 50 U/L (38-133); ALT/SGPT 34 U/L (7-56); AST/SGOT 35 U/L (15-59); BILIRUBIN,TOTAL 0.7 mg/dL (0.2-1.3); BLOOD UREA NITROGEN 13 mg/dL (7-21); CARBON DIOXIDE 29 mmol/L (21-33); CHLORIDE 106 mmol/L (98-107); GFR AFRICAN-AMERICAN > 60; GLUCOSE,RANDOM 138 mg/dL (70-110); POTASSIUM 3.9 mmol/L (3.6-5.0); SODIUM 143 mmol/L (132-148); TOTAL PROTEIN 6.8 g/dL (5.8-8.3)
[2016-10-02] MEDS ORDERED: Sodium Chloride 0.9% 1,000 ML IV SCH (07:15)
--- NOTE | 2016-10-02 07:52 | PN ---
DATE: 10/02/2016 I saw him in the intensive care unit. He is extubated. He is alert, very lethargic, coughing up con gestion, a lot of phlegm. He is on Diprivan, DuoNeb, heparin, insulin, Precedex, Protonix, IV fluids and IV Solu-Medrol. PHYSICAL EXAMINATION: VITAL SIGNS: Temp 98.9, 86 pulse, 168/86 blood pressure, 24 respiratory rate, 98% O2 sat on 5 liters . HEENT: His head is atraumatic, normocephalic. GENERAL: He is lethargic, difficult to talk. HEART: Regular rate. LUNGS: Congestion bilaterally, changes with cough. ABDOMEN: Soft. EXTREMITIES: No edema. He is still kind of tight. He has a 13.2 white count, 13.5 hemoglobin, 39.7 hematocrit with 340 platelets. INR 1.07. He has a 143 sodium, potassium is 3.9, BUN 13, creatinine 0.8, GFR is greater than 60, sugar is 138, calcium i s 9, total bili is 0.7, AST is 35, ALT is 34, alk phos is 30, total protein 6.8. Urine is clean. He was positive for opiates and I believe heroin when he came in. He is being seen by synchro assembler and blacksmith helper. He has a chest x-ray pending. I am glad he is ex tubated. He is still not good yet. He is here for asthma, respiratory failure and drug abuse. We w abbe continue treatment in the intensive care unit. Hopefully, he will not have to be reintubated. Geovanna denny will check his labs tomorrow, get him out of bed to chair. Brando Echols DO cc: [id number] TT: 10/02/2016 07:51:55 Confirmation # [id number] Dictation # [id number]
--- NOTE | 2016-10-02 07:54 | CP.CCUPN ---
<Yunior Hernandez - Last Filed: 10/02/16 09:25> CCU Subjective - Physician Review Events Since Last Encounter (Free Text): This patient reports no acute events overnight. 10/02/16 07:51 10/02/16 07:53 Subjective (Free Text): Since yesterday the patient has been extubated and has remained extubated. He is currently on 5L nasal cannula. He denies shortness of breath, chest pain, nausea, vomiting or diarrhea. He has no complaints at this time. 10/02/16 07:54 CCU Objective - Vital Signs / Intake & Output Vital Signs (Last 4 hours): Vital Signs Temp Pulse Resp BP Pulse Ox 10/02/16 06:01 86 24 168/86 H 98 10/02/16 06:00 80 18 98 10/02/16 05:00 79 19 164/88 H 100 10/02/16 04:01 77 20 148/68 95 10/02/16 04:00 98.9 F 76 19 95 Intake and Output (Last 8hrs): Intake & Output 10/01/16 10/02/16 10/02/16 22:59 06:59 14:59 Intake Total 1710 1500 Output Total 700 1300 Balance 1010 200 Intake: IV 1710 1500 Left Antecubital 63 Left Forearm 1613 1500 Output: Urine 700 1300 Urethral (Mora) 700 1300 Other: Voiding Method Indwelling Catheter Indwelling Catheter # Bowel Movements 0 - Physical Exam Head: Positive for: Atraumatic, Normocephalic Pupils: Positive for: PERRL Conjunctiva: Positive for: Normal Mouth: Positive for: Moist Mucous Membranes Pharnyx: Positive for: Normal. Negative for: ERYTHEMA, EXUDATE Respiratory/Chest: Positive for: Accessory Muscle Use, Wheezes (Expiratory Wheezes), Decreased Breath Sounds Cardiovascular: Positive for: Normal S1, S2, Tachycardic. Negative for: Murmurs Abdomen: Positive for: Normal Bowel Sounds. Negative for: Tenderness, Distention, Peritoneal Signs Upper Extremity: Positive for: Normal Inspection. Negative for: Cyanosis, Edema Lower Extremity: Positive for: Normal Inspection. Negative for: Edema Neurological: Positive for: GCS=15, CN II-XII Intact Skin: Positive for: Warm, Normal Color, Diaphoretic. Negative for: Rashes Psychiatric: Positive for: Alert, Oriented x 3, Anxious (anxiety appropriate for acuity of medical condition.) - Medications Active Medications: Active Medications Generic Name Dose Route Start Last Admin Trade Name Freq PRN Reason Stop Dose Admin Albuterol/Ipratropium 3 ml 10/01/16 07:30 10/02/16 07:08 Duoneb 3 Mg/0.5 Mg (3 Ml) Ud IH 3 ml [id number] [facility] Administration Heparin Sodium (Porcine) 5,000 units 09/30/16 14:00 10/02/16 06:23 Heparin SC Not Given Q8H [facility] Protocol Propofol 1,000 mg in 100 mls @ 2.245 mls/hr 09/30/16 14:36 10/01/16 15:30 Diprivan IV 0 mcg/kg/min .Q24H PRN 0 mls/hr Agitation Titration Protocol 5 MCG/KG/MIN Dexmedetomidine HCl 400 mcg in 100 mls @ 3.742 mls/hr 09/30/16 16:18 22:54 Precedex 4 Mcg/Ml (100 Ml) IV 0.5 mcg/kg/hr .Q24H PRN 9.355 mls/hr Agitation Titration Protocol 0.2 MCG/KG/HR Sodium Chloride 1,000 mls @ 75 mls/hr 10/02/16 07:15 Sodium Chloride 0.9% IV .[id number] [facility] Insulin Human Regular 0 units 10/01/16 07:30 10/01/16 21:55 Humulin R High SC Not Given ACHS [facility] Protocol Methylprednisolone 40 mg 10/02/16 12:00 Solu-Medrol IVP Q6 [facility] Pantoprazole Sodium 40 mg 09/30/16 14:15 10/01/16 09:19 Protonix Inj IVP 40 mg DAILY [facility] Administration - Patient Studies Lab Studies: Microbiology Studies 09/30/16 15:00 MRSA Culture (Admit) - Final Nose MRSA DETECTED 09/30/16 13:20 Blood Culture - Preliminary Blood-Venous NO GROWTH AFTER 24 HOURS 09/30/16 13:00 Blood Culture - Preliminary Blood-Venous NO GROWTH AFTER 24 HOURS Lab Studies 10/02/16 10/02/16 10/02/16 Range/Units 06:00 06:00 05:33 WBC 13.2 H (4.5-11.0) 10^3/ul RBC 4.27 (3.5-6.1) 10^6/uL Hgb 13.5 L (14.0-18.0) gm/dL Hct 39.7 L (42.0-52.0) % MCV 93.0 (80.0-105.0) fL MCH 31.6 (25.0-35.0) pg MCHC 34.0 (31.0-37.0) g/dl RDW 11.5 (11.5-14.5) % Plt Count 340 (120.0-450.0) 10^3/uL MPV 9.0 (7.0-11.0) fl Gran % 86.3 H (50.0-68.0) % Lymph % (Auto) 6.1 L (22.0-35.0) % Benzie % (Auto) 7.3 H (1.0-6.0) % Eos % (Auto) 0.0 L (1.5-5.0) % Baso % (Auto) 0.3 (0.0-3.0) % Gran # 11.42 H (1.4-6.5) Lymph # 0.8 L (1.2-3.4) Benzie # 1.0 H (0.1-0.6) Eos # 0.0 (0.0-0.7) Baso # 0.04 (0.0-2.0) K/mm3 pCO2 37 (35-45) mm/Hg pO2 63.0 L (80-100) mm/Hg HCO3 27.6 (21-28) mmol/L ABG pH 7.48 H (7.35-7.45) ABG Total CO2 28.7 H (22-28) mmol.L ABG O2 Saturation 95.9 (95-98) % ABG O2 Content 16.1 (15-23) ML/dl ABG Base Excess 4.0 H (-2.0-3.0) mmol/L ABG Hemoglobin 12.2 (11.7-17.4) g/dL ABG Carboxyhemoglobin 1.7 H (0.5-1.5) % POC ABG HHb (Measured) 4.0 (0-5) % ABG Methemoglobin 0.5 (0.0-3.0) % ABG O2 Capacity 16.8 (16-24) mL/dl Hgb O2 Saturation 93.8 L (95.0-98.0) % FiO2 36.0 % Sodium 143 (132-148) mmol/L Potassium 3.9 (3.6-5.0) mmol/L Chloride 106 (98-107) mmol/L Carbon Dioxide 29 (21-33) mmol/L Anion Gap 12 (10-20) BUN 13 (7-21) mg/dL Creatinine 0.8 (0.5-1.4) mg/dL Est GFR ( Amer) > 60 Est GFR (Non-Af Amer) > 60 POC Glucose (mg/dL) (65-110) mg/dL Random Glucose 138 H (70-110) mg/dL Calcium 9.0 (8.4-10.5) mg/dL Total Bilirubin 0.7 (0.2-1.3) mg/dL AST 35 (15-59) U/L ALT 34 (7-56) U/L Alkaline Phosphatase 50 (38-133) U/L Total Protein 6.8 (5.8-8.3) g/dL Albumin 3.7 (3.0-4.8) g/dL Globulin 3.2 gm/dL Albumin/Globulin Ratio 1.2 (1.1-1.8) Procalcitonin (0.19-0.49) NG/ML 10/01/16 10/01/16 10/01/16 Range/Units 17:33 15:13 11:28 WBC (4.5-11.0) 10^3/ul RBC (3.5-6.1) 10^6/uL Hgb (14.0-18.0) gm/dL Hct (42.0-52.0) % MCV (80.0-105.0) fL MCH (25.0-35.0) pg MCHC (31.0-37.0) g/dl RDW (11.5-14.5) % Plt Count (120.0-450.0) 10^3/uL MPV (7.0-11.0) fl Gran % (50.0-68.0) % Lymph % (Auto) (22.0-35.0) % Benzie % (Auto) (1.0-6.0) % Eos % (Auto) (1.5-5.0) % Baso % (Auto) (0.0-3.0) % Gran # (1.4-6.5) Lymph # (1.2-3.4) Benzie # (0.1-0.6) Eos # (0.0-0.7) Baso # (0.0-2.0) K/mm3 pCO2 39 (35-45) mm/Hg pO2 65.0 L (80-100) mm/Hg HCO3 27.7 (21-28) mmol/L ABG pH 7.46 H (7.35-7.45) ABG Total CO2 28.9 H (22-28) mmol.L ABG O2 Saturation 96.1 (95-98) % ABG O2 Content 16.2 (15-23) ML/dl ABG Base Excess 3.7 H (-2.0-3.0) mmol/L ABG Hemoglobin 12.3 (11.7-17.4) g/dL ABG Carboxyhemoglobin 1.5 (0.5-1.5) % POC ABG HHb (Measured) 3.8 (0-5) % ABG Methemoglobin 0.9 (0.0-3.0) % ABG O2 Capacity 16.9 (16-24) mL/dl Hgb O2 Saturation 93.7 L (95.0-98.0) % FiO2 30.0 % Sodium (132-148) mmol/L Potassium (3.6-5.0) mmol/L Chloride (98-107) mmol/L Carbon Dioxide (21-33) mmol/L Anion Gap (10-20) BUN (7-21) mg/dL Creatinine (0.5-1.4) mg/dL Est GFR ( Amer) Est GFR (Non-Af Amer) POC Glucose (mg/dL) 150 H 137 H (65-110) mg/dL Random Glucose (70-110) mg/dL Calcium (8.4-10.5) mg/dL Total Bilirubin (0.2-1.3) mg/dL AST (15-59) U/L ALT (7-56) U/L Alkaline Phosphatase (38-133) U/L Total Protein (5.8-8.3) g/dL Albumin (3.0-4.8) g/dL Globulin gm/dL Albumin/Globulin Ratio (1.1-1.8) Procalcitonin (0.19-0.49) NG/ML 10/01/16 09/30/16 Range/Units 07:50 13:32 WBC (4.5-11.0) 10^3/ul RBC (3.5-6.1) 10^6/uL Hgb (14.0-18.0) gm/dL Hct (42.0-52.0) % MCV (80.0-105.0) fL MCH (25.0-35.0) pg MCHC (31.0-37.0) g/dl RDW (11.5-14.5) % Plt Count (120.0-450.0) 10^3/uL MPV (7.0-11.0) fl Gran % (50.0-68.0) % Lymph % (Auto) (22.0-35.0) % Benzie % (Auto) (1.0-6.0) % Eos % (Auto) (1.5-5.0) % Baso % (Auto) (0.0-3.0) % Gran # (1.4-6.5) Lymph # (1.2-3.4) Benzie # (0.1-0.6) Eos # (0.0-0.7) Baso # (0.0-2.0) K/mm3 pCO2 (35-45) mm/Hg pO2 (80-100) mm/Hg HCO3 (21-28) mmol/L ABG pH (7.35-7.45) ABG Total CO2 (22-28) mmol.L ABG O2 Saturation (95-98) % ABG O2 Content (15-23) ML/dl ABG Base Excess (-2.0-3.0) mmol/L ABG Hemoglobin (11.7-17.4) g/dL ABG Carboxyhemoglobin (0.5-1.5) % POC ABG HHb (Measured) (0-5) % ABG Methemoglobin (0.0-3.0) % ABG O2 Capacity (16-24) mL/dl Hgb O2 Saturation (95.0-98.0) % FiO2 % Sodium (132-148) mmol/L Potassium (3.6-5.0) mmol/L Chloride (98-107) mmol/L Carbon Dioxide (21-33) mmol/L Anion Gap (10-20) BUN (7-21) mg/dL Creatinine (0.5-1.4) mg/dL Est GFR ( Amer) Est GFR (Non-Af Amer) POC Glucose (mg/dL) 144 H (65-110) mg/dL Random Glucose (70-110) mg/dL Calcium (8.4-10.5) mg/dL Total Bilirubin (0.2-1.3) mg/dL AST (15-59) U/L ALT (7-56) U/L Alkaline Phosphatase (38-133) U/L Total Protein (5.8-8.3) g/dL Albumin (3.0-4.8) g/dL Globulin gm/dL Albumin/Globulin Ratio (1.1-1.8) Procalcitonin < 0.05 L (0.19-0.49) NG/ML Laboratory Results - last 24 hr 09/30/16 10/01/16 10/01/16 13:32 07:50 11:28 WBC RBC Hgb Hct MCV MCH MCHC RDW Plt Count MPV Gran % Lymph % (Auto) Benzie % (Auto) Eos % (Auto) Baso % (Auto) Gran # Lymph # Benzie # Eos # Baso # pCO2 pO2 HCO3 ABG pH ABG Total CO2 ABG O2 Saturation ABG O2 Content ABG Base Excess ABG Hemoglobin ABG Carboxyhemoglobin POC ABG HHb (Measured) ABG Methemoglobin ABG O2 Capacity Hgb O2 Saturation FiO2 Sodium Potassium Chloride Carbon Dioxide Anion Gap BUN Creatinine Est GFR ( Amer) Est GFR (Non-Af Amer) POC Glucose (mg/dL) 144 H 137 H Random Glucose Calcium Total Bilirubin AST ALT Alkaline Phosphatase Total Protein Albumin Globulin Albumin/Globulin Ratio Procalcitonin < 0.05 L 10/01/16 10/01/16 10/02/16 15:13 17:33 05:33 WBC RBC Hgb Hct MCV MCH MCHC RDW Plt Count MPV Gran % Lymph % (Auto) Benzie % (Auto) Eos % (Auto) Baso % (Auto) Gran # Lymph # Benzie # Eos # Baso # pCO2 39 37 pO2 65.0 L 63.0 L HCO3 27.7 27.6 ABG pH 7.46 H 7.48 H ABG Total CO2 28.9 H 28.7 H ABG O2 Saturation 96.1 95.9 ABG O2 Content 16.2 16.1 ABG Base Excess 3.7 H 4.0 H ABG Hemoglobin 12.3 12.2 ABG Carboxyhemoglobin 1.5 1.7 H POC ABG HHb (Measured) 3.8 4.0 ABG Methemoglobin 0.9 0.5 ABG O2 Capacity 16.9 16.8 Hgb O2 Saturation 93.7 L 93.8 L FiO2 30.0 36.0 Sodium Potassium Chloride Carbon Dioxide Anion Gap BUN Creatinine Est GFR ( Amer) Est GFR (Non-Af Amer) POC Glucose (mg/dL) 150 H Random Glucose Calcium Total Bilirubin AST ALT Alkaline Phosphatase Total Protein Albumin Globulin Albumin/Globulin Ratio Procalcitonin 10/02/16 10/02/16 06:00 06:00 WBC 13.2 H RBC 4.27 Hgb 13.5 L Hct 39.7 L MCV 93.0 MCH 31.6 MCHC 34.0 RDW 11.5 Plt Count 340 MPV 9.0 Gran % 86.3 H Lymph % (Auto) 6.1 L Benzie % (Auto) 7.3 H Eos % (Auto) 0.0 L Baso % (Auto) 0.3 Gran # 11.42 H Lymph # 0.8 L Benzie # 1.0 H Eos # 0.0 Baso # 0.04 pCO2 pO2 HCO3 ABG pH ABG Total CO2 ABG O2 Saturation ABG O2 Content ABG Base Excess ABG Hemoglobin ABG Carboxyhemoglobin POC ABG HHb (Measured) ABG Methemoglobin ABG O2 Capacity Hgb O2 Saturation FiO2 Sodium 143 Potassium 3.9 Chloride 106 Carbon Dioxide 29 Anion Gap 12 BUN 13 Creatinine 0.8 Est GFR ( Amer) > 60 Est GFR (Non-Af Amer) > 60 POC Glucose (mg/dL) Random Glucose 138 H Calcium 9.0 Total Bilirubin 0.7 AST 35 ALT 34 Alkaline Phosphatase 50 Total Protein 6.8 Albumin 3.7 Globulin 3.2 Albumin/Globulin Ratio 1.2 Procalcitonin Fingerstick Blood Sugar Results: 172 Review of Systems - Cardiovascular Cardiovascular: absent: Chest Pain, Dyspnea - Respiratory Respiratory: Cough, Excessive Mucous Production. absent: Dyspnea - Gastrointestinal Gastrointestinal: absent: Abdominal Pain, Bloating - Musculoskeletal Musculoskeletal: absent: Arthralgias, Back Pain - Neurological Neurological: absent: Abnormal Hearing, Confusion Critical Care Progress Note - Ventilator Checklist Head of Bed 30 Degrees: Yes PUD Prophalyxis: Yes DVT Prophylaxis: Yes - Extremities/Vascular Does the Patient have a Central Venous Catheter?: No Does the Patient need a Central Venous Catheter?: No Does the Patient have a Mora Catheter?: No Does the Patient need a Mora Catheter?: No - Prophylaxis GI Prophylaxis GI: PPI - Prophylaxis DVT Prophylaxis DVT: Heparin SQ - Nutrition Nutrition: Regular Diet Assessment/Plan - Assessment and Plan (Free Text) Assessment: This is a 41M with a PMH of Heroin abuse and asthma who presented to [facility] [place] in status asthmaticus. Neurological: AAOX3 Cardiovascular: Hemodynamically intact, vital signs stable Respiratory: AM CXR Lungs Clear, Continue Nasal cannula titrate at needed with goal pO2 above 80-100, Continue duonebs q4h, continue solumedrol IVP Q6, Nutrition: Patient able to swallow at bedside after extubation will give him a regular diet Genitourinary: Patient without indwelling catheter and voiding Fluids: NS@75 Hematologic: Leukocytosis of 13.2 likely due to steroids Endocrine: No acute processes ID: No acute processes Psychological: Patient is lethargic will discuss rehabilitation before discharge. <Kerry LUND,Kristian H - Last Filed: 10/02/16 13:32> CCU Objective - Vital Signs / Intake & Output Vital Signs (Last 4 hours): Vital Signs Pulse Resp BP Pulse Ox 10/02/16 13:17 119/55 L 10/02/16 10:01 80 24 149/83 100 10/02/16 10:00 77 23 94 L Intake and Output (Last 8hrs): Intake & Output 10/01/16 10/02/16 10/02/16 22:59 06:59 14:59 Intake Total 1710 1500 130 Output Total 700 1300 Balance 1010 200 130 Intake: IV 1710 1500 130 Left Antecubital 63 Left Forearm 1613 1500 Output: Urine 700 1300 Urethral (Mora) 700 1300 Other: Voiding Method Indwelling Catheter Indwelling Catheter Urinal # Bowel Movements 0 - Medications Active Medications: Active Medications Generic Name Dose Route Start Last Admin Trade Name Freq PRN Reason Stop Dose Admin Albuterol/Ipratropium 3 ml 10/01/16 07:30 10/02/16 11:01 Duoneb 3 Mg/0.5 Mg (3 Ml) Ud IH 3 ml [id number] JOBY Administration Budesonide 0.5 mg 10/02/16 20:00 Pulmicort Respules IH [id number] JOBY Heparin Sodium (Porcine) 5,000 units 09/30/16 14:00 10/02/16 13:18 Heparin SC Not Given Q8H [facility] Protocol Propofol 1,000 mg in 100 mls @ 2.245 mls/hr 09/30/16 14:36 10/01/16 15:30 Diprivan IV 0 mcg/kg/min .Q24H PRN 0 mls/hr Agitation Titration Protocol 5 MCG/KG/MIN Dexmedetomidine HCl 400 mcg in 100 mls @ 3.742 mls/hr 09/30/16 16:18 13:10 Precedex 4 Mcg/Ml (100 Ml) IV 0 mcg/kg/hr .Q24H PRN 0 mls/hr Agitation Titration Protocol 0.2 MCG/KG/HR Insulin Human Regular 0 units 10/01/16 07:30 10/02/16 13:04 Humulin R High SC Not Given ACHS [facility] Protocol Lorazepam 1 mg 10/02/16 13:18 Ativan PO Q3H PRN Anxiety Methylprednisolone 40 mg 10/02/16 12:00 10/02/16 13:16 Solu-Medrol IVP 40 mg Q6 [facility] Administration Pantoprazole Sodium 40 mg 09/30/16 14:15 10/02/16 09:44 Protonix Inj IVP 40 mg DAILY JOBY Administration - Patient Studies Lab Studies: Microbiology Studies 09/30/16 13:20 Blood Culture - Preliminary Blood-Venous NO GROWTH AFTER 48 HOURS 09/30/16 13:00 Blood Culture - Preliminary Blood-Venous NO GROWTH AFTER 48 HOURS 09/30/16 15:00 MRSA Culture (Admit) - Final Nose MRSA DETECTED Lab Studies 10/02/16 10/02/16 10/02/16 Range/Units 06:00 06:00 06:00 WBC 13.2 H (4.5-11.0) 10^3/ul RBC 4.27 (3.5-6.1) 10^6/uL Hgb 13.5 L (14.0-18.0) gm/dL Hct 39.7 L (42.0-52.0) % MCV 93.0 (80.0-105.0) fL MCH 31.6 (25.0-35.0) pg MCHC 34.0 (31.0-37.0) g/dl RDW 11.5 (11.5-14.5) % Plt Count 340 (120.0-450.0) 10^3/uL MPV 9.0 (7.0-11.0) fl Gran % 86.3 H (50.0-68.0) % Lymph % (Auto) 6.1 L (22.0-35.0) % Benzie % (Auto) 7.3 H (1.0-6.0) % Eos % (Auto) 0.0 L (1.5-5.0) % Baso % (Auto) 0.3 (0.0-3.0) % Gran # 11.42 H (1.4-6.5) Lymph # 0.8 L (1.2-3.4) Benzie # 1.0 H (0.1-0.6) Eos # 0.0 (0.0-0.7) Baso # 0.04 (0.0-2.0) K/mm3 pCO2 (35-45) mm/Hg pO2 (80-100) mm/Hg HCO3 (21-28) mmol/L ABG pH (7.35-7.45) ABG Total CO2 (22-28) mmol.L ABG O2 Saturation (95-98) % ABG O2 Content (15-23) ML/dl ABG Base Excess (-2.0-3.0) mmol/L ABG Hemoglobin (11.7-17.4) g/dL ABG Carboxyhemoglobin (0.5-1.5) % POC ABG HHb (Measured) (0-5) % ABG Methemoglobin (0.0-3.0) % ABG O2 Capacity (16-24) mL/dl Hgb O2 Saturation (95.0-98.0) % FiO2 % Sodium 143 (132-148) mmol/L Potassium 3.9 (3.6-5.0) mmol/L Chloride 106 (98-107) mmol/L Carbon Dioxide 29 (21-33) mmol/L Anion Gap 12 (10-20) BUN 13 (7-21) mg/dL Creatinine 0.8 (0.5-1.4) mg/dL Est GFR ( Amer) > 60 Est GFR (Non-Af Amer) > 60 POC Glucose (mg/dL) (65-110) mg/dL Random Glucose 138 H (70-110) mg/dL Calcium 9.0 (8.4-10.5) mg/dL Total Bilirubin 0.7 (0.2-1.3) mg/dL AST 35 (15-59) U/L ALT 34 (7-56) U/L Alkaline Phosphatase 50 (38-133) U/L Troponin I 0.02 D ng/mL Total Protein 6.8 (5.8-8.3) g/dL Albumin 3.7 (3.0-4.8) g/dL Globulin 3.2 gm/dL Albumin/Globulin Ratio 1.2 (1.1-1.8) Procalcitonin (0.19-0.49) NG/ML 10/02/16 10/01/16 10/01/16 Range/Units 05:33 17:33 15:13 WBC (4.5-11.0) 10^3/ul RBC (3.5-6.1) 10^6/uL Hgb (14.0-18.0) gm/dL Hct (42.0-52.0) % MCV (80.0-105.0) fL MCH (25.0-35.0) pg MCHC (31.0-37.0) g/dl RDW (11.5-14.5) % Plt Count (120.0-450.0) 10^3/uL MPV (7.0-11.0) fl Gran % (50.0-68.0) % Lymph % (Auto) (22.0-35.0) % Benzie % (Auto) (1.0-6.0) % Eos % (Auto) (1.5-5.0) % Baso % (Auto) (0.0-3.0) % Gran # (1.4-6.5) Lymph # (1.2-3.4) Benzie # (0.1-0.6) Eos # (0.0-0.7) Baso # (0.0-2.0) K/mm3 pCO2 37 39 (35-45) mm/Hg pO2 63.0 L 65.0 L (80-100) mm/Hg HCO3 27.6 27.7 (21-28) mmol/L ABG pH 7.48 H 7.46 H (7.35-7.45) ABG Total CO2 28.7 H 28.9 H (22-28) mmol.L ABG O2 Saturation 95.9 96.1 (95-98) % ABG O2 Content 16.1 16.2 (15-23) ML/dl ABG Base Excess 4.0 H 3.7 H (-2.0-3.0) mmol/L ABG Hemoglobin 12.2 12.3 (11.7-17.4) g/dL ABG Carboxyhemoglobin 1.7 H 1.5 (0.5-1.5) % POC ABG HHb (Measured) 4.0 3.8 (0-5) % ABG Methemoglobin 0.5 0.9 (0.0-3.0) % ABG O2 Capacity 16.8 16.9 (16-24) mL/dl Hgb O2 Saturation 93.8 L 93.7 L (95.0-98.0) % FiO2 36.0 30.0 % Sodium (132-148) mmol/L Potassium (3.6-5.0) mmol/L Chloride (98-107) mmol/L Carbon Dioxide (21-33) mmol/L Anion Gap (10-20) BUN (7-21) mg/dL Creatinine (0.5-1.4) mg/dL Est GFR ( Amer) Est GFR (Non-Af Amer) POC Glucose (mg/dL) 150 H (65-110) mg/dL Random Glucose (70-110) mg/dL Calcium (8.4-10.5) mg/dL Total Bilirubin (0.2-1.3) mg/dL AST (15-59) U/L ALT (7-56) U/L Alkaline Phosphatase (38-133) U/L Troponin I ng/mL Total Protein (5.8-8.3) g/dL Albumin (3.0-4.8) g/dL Globulin gm/dL Albumin/Globulin Ratio (1.1-1.8) Procalcitonin (0.19-0.49) NG/ML 10/01/16 10/01/16 09/30/16 Range/Units 11:28 07:50 13:32 WBC (4.5-11.0) 10^3/ul RBC (3.5-6.1) 10^6/uL Hgb (14.0-18.0) gm/dL Hct (42.0-52.0) % MCV (80.0-105.0) fL MCH (25.0-35.0) pg MCHC (31.0-37.0) g/dl RDW (11.5-14.5) % Plt Count (120.0-450.0) 10^3/uL MPV (7.0-11.0) fl Gran % (50.0-68.0) % Lymph % (Auto) (22.0-35.0) % Benzie % (Auto) (1.0-6.0) % Eos % (Auto) (1.5-5.0) % Baso % (Auto) (0.0-3.0) % Gran # (1.4-6.5) Lymph # (1.2-3.4) Benzie # (0.1-0.6) Eos # (0.0-0.7) Baso # (0.0-2.0) K/mm3 pCO2 (35-45) mm/Hg pO2 (80-100) mm/Hg HCO3 (21-28) mmol/L ABG pH (7.35-7.45) ABG Total CO2 (22-28) mmol.L ABG O2 Saturation (95-98) % ABG O2 Content (15-23) ML/dl ABG Base Excess (-2.0-3.0) mmol/L ABG Hemoglobin (11.7-17.4) g/dL ABG Carboxyhemoglobin (0.5-1.5) % POC ABG HHb (Measured) (0-5) % ABG Methemoglobin (0.0-3.0) % ABG O2 Capacity (16-24) mL/dl Hgb O2 Saturation (95.0-98.0) % FiO2 % Sodium (132-148) mmol/L Potassium (3.6-5.0) mmol/L Chloride (98-107) mmol/L Carbon Dioxide (21-33) mmol/L Anion Gap (10-20) BUN (7-21) mg/dL Creatinine (0.5-1.4) mg/dL Est GFR ( Amer) Est GFR (Non-Af Amer) POC Glucose (mg/dL) 137 H 144 H (65-110) mg/dL Random Glucose (70-110) mg/dL Calcium (8.4-10.5) mg/dL Total Bilirubin (0.2-1.3) mg/dL AST (15-59) U/L ALT (7-56) U/L Alkaline Phosphatase (38-133) U/L Troponin I ng/mL Total Protein (5.8-8.3) g/dL Albumin (3.0-4.8) g/dL Globulin gm/dL Albumin/Globulin Ratio (1.1-1.8) Procalcitonin < 0.05 L (0.19-0.49) NG/ML Laboratory Results - last 24 hr 09/30/16 10/01/16 10/01/16 13:32 07:50 11:28 WBC RBC Hgb Hct MCV MCH MCHC RDW Plt Count MPV Gran % Lymph % (Auto) Benzie % (Auto) Eos % (Auto) Baso % (Auto) Gran # Lymph # Benzie # Eos # Baso # pCO2 pO2 HCO3 ABG pH ABG Total CO2 ABG O2 Saturation ABG O2 Content ABG Base Excess ABG Hemoglobin ABG Carboxyhemoglobin POC ABG HHb (Measured) ABG Methemoglobin ABG O2 Capacity Hgb O2 Saturation FiO2 Sodium Potassium Chloride Carbon Dioxide Anion Gap BUN Creatinine Est GFR ( Amer) Est GFR (Non-Af Amer) POC Glucose (mg/dL) 144 H 137 H Random Glucose Calcium Total Bilirubin AST ALT Alkaline Phosphatase Troponin I Total Protein Albumin Globulin Albumin/Globulin Ratio Procalcitonin < 0.05 L 10/01/16 10/01/16 10/02/16 15:13 17:33 05:33 WBC RBC Hgb Hct MCV MCH MCHC RDW Plt Count MPV Gran % Lymph % (Auto) Benzie % (Auto) Eos % (Auto) Baso % (Auto) Gran # Lymph # Benzie # Eos # Baso # pCO2 39 37 pO2 65.0 L 63.0 L HCO3 27.7 27.6 ABG pH 7.46 H 7.48 H ABG Total CO2 28.9 H 28.7 H ABG O2 Saturation 96.1 95.9 ABG O2 Content 16.2 16.1 ABG Base Excess 3.7 H 4.0 H ABG Hemoglobin 12.3 12.2 ABG Carboxyhemoglobin 1.5 1.7 H POC ABG HHb (Measured) 3.8 4.0 ABG Methemoglobin 0.9 0.5 ABG O2 Capacity 16.9 16.8 Hgb O2 Saturation 93.7 L 93.8 L FiO2 30.0 36.0 Sodium Potassium Chloride Carbon Dioxide Anion Gap BUN Creatinine Est GFR ( Amer) Est GFR (Non-Af Amer) POC Glucose (mg/dL) 150 H Random Glucose Calcium Total Bilirubin AST ALT Alkaline Phosphatase Troponin I Total Protein Albumin Globulin Albumin/Globulin Ratio Procalcitonin 10/02/16 10/02/16 10/02/16 06:00 06:00 06:00 WBC 13.2 H RBC 4.27 Hgb 13.5 L Hct 39.7 L MCV 93.0 MCH 31.6 MCHC 34.0 RDW 11.5 Plt Count 340 MPV 9.0 Gran % 86.3 H Lymph % (Auto) 6.1 L Benzie % (Auto) 7.3 H Eos % (Auto) 0.0 L Baso % (Auto) 0.3 Gran # 11.42 H Lymph # 0.8 L Benzie # 1.0 H Eos # 0.0 Baso # 0.04 pCO2 pO2 HCO3 ABG pH ABG Total CO2 ABG O2 Saturation ABG O2 Content ABG Base Excess ABG Hemoglobin ABG Carboxyhemoglobin POC ABG HHb (Measured) ABG Methemoglobin ABG O2 Capacity Hgb O2 Saturation FiO2 Sodium 143 Potassium 3.9 Chloride 106 Carbon Dioxide 29 Anion Gap 12 BUN 13 Creatinine 0.8 Est GFR ( Amer) > 60 Est GFR (Non-Af Amer) > 60 POC Glucose (mg/dL) Random Glucose 138 H Calcium 9.0 Total Bilirubin 0.7 AST 35 ALT 34 Alkaline Phosphatase 50 Troponin I 0.02 D Total Protein 6.8 Albumin 3.7 Globulin 3.2 Albumin/Globulin Ratio 1.2 Procalcitonin Critical Care Progress Note - Nutrition Nutrition: Nutrition Category Date Time Status Heart Healthy Diet [DIET] Diets 10/02/16 Breakfast Ordered Attending/Attestation - Attestation I have personally seen and examined this patient.: Yes I have fully participated in the care of the patient.: Yes I have reviewed all pertinent clinical information: Yes Notes (Text): 10/02/16 13:28 41 y/o M who presented w/ SOB, respiratory failure secondary to Acute Asthma attack w/ hypercarbia. Extubated yesterday , tolerating 3-4L NC to keep 02 sat > 92 % Will need 02 walk test when capable of d/c. CXR and I7O's maybe suggestive of mild PVC in the setting of reduced EF% ( 25%) Will need cardiology consult to manage and follow low EF to r/o ischemic vs cardiomyopathy ( drug induced etc) Will need to optimize medications for CHF . B- Blcokers, ACEI and likely diuretics . Repeat ECHo needed in 4-6 weeks w/ possible Cardiac Cath . Will need pulmonary outpatient follow up. Will add ICS and LABA combo. WIll need Solumedrol changed to Prednisone on D/C. PFT in 3 weeks . Will need drug rehab counseling for Heroin addiction . Wean off Precedex and add Benzodiazapenes and /or Clonidine. Consult Psych. Out o fbed to chair . Pt/OT DVT p Heparin sq tid Smoking cessation . cc time 65 min Case d/w Residents and Patient.
--- NOTE | 2016-10-02 08:19 | PN ---
DATE: 10/02/2016(655am--745am) SUBJECTIVE: The patient is now extubated. He appears comfortable at rest. He is not short of breath. PHYSICAL EXAMINATION: VITAL SIGNS: Temperature is 98.9, pulse is 86, respirations 18, blood pressure 168/86. Oxygen saturation on nasal cannula(5L) is 98%. HEENT: Normocephalic, atraumatic. No JVD. CARDIOVASCULAR: Positive S1, S2. No S3. LUNGS: Decreased breath sounds at the bases. Less rhonchi. Less wheezing. EXTREMITIES: No clubbing, cyanosis, or edema. Calves are nontender to palpation. GASTROINTESTINAL: Abdomen is soft, nontender, nondistended. Bowel sounds are positive. SKIN: No acute rash. NEUROLOGIC: Limited at the present time. PERTINENT LABORATORY DATA: Chest x-ray was done this morning and reviewed. The x-ray is extremely rotated and poor in quality. There is a slight increase in the interstitial markings in the left lung - but this is probably due to poor technique and positioning of the patient. Arterial blood gas was done on 3 liters nasal cannula. Results are: pH 7.48, pCO2 of 37, pO2 of 63. IMPRESSION: 1. Respiratory failure. 2. Status asthmaticus. 3. Acute bronchospasm. 4. Heroin abuse. PLAN: The patient is now extubated. He is resting comfortably this morning. I did discuss the case with the night nurse at length. The night nurse stated that the patient did have a good night. On physical exam, there is certainly less bronchospasm noted. I will continue with the current nebulizer treatments and decrease the intravenous steroids this morning. I did review the chest x- ray - as above. Again, the x-ray is a very poor quality film, very rotated. The increased markings in the left lung are probably due to rotation, but I will review the film with radiology this morning. I will also order a repeat chest x-ray and repeat an arterial blood gas - to be done in the morning. I would like to see the patient out of bed if possible this morning. Clinical status of the patient is significantly improved. I did discuss the above with Dr. Echols at length. I will also discuss the above with the entire ICU team in the next few moments. Juan Tate MD cc: [id number] TT: 10/02/2016 08:19:05 Confirmation # [id number] Dictation # [id number] mn MICHAEL
[2016-10-02] MEDS: Insulin Reg-HIGH-Coverage SC SCH ×2 (08:36→13:04)
--- NOTE | 2016-10-02 09:24 | RAD ---
HISTORY: follow up COMPARISON: 10/01/2016 FINDINGS: LUNGS: There has been interval extubation. The lungs are clear. PLEURA: No significant pleural effusion identified, no pneumothorax apparent. CARDIOVASCULAR: Normal. OSSEOUS STRUCTURES: No significant abnormalities. VISUALIZED UPPER ABDOMEN: Normal. OTHER FINDINGS: None. IMPRESSION: Status post extubation, no acute findings.
[2016-10-02] MEDS: Dexmedetomidine HCl 4mcg/ml 400 MCG/100 ML BOTTLE IV PRN (09:43)
[2016-10-02] MEDS: MethylPREDNISolone 40 mg Vial IVP SCH ×2 (13:16→17:16)
--- NOTE | 2016-10-02 13:26 | CP.PCM.PCO ---
Physician Communication Note - Physician Communication Note Physician Communication Note: heroin addiction is not indication to see psychiatrist, [facility] for counceling
[2016-10-02] MEDS: Budesonide 0.5 mg/2 ml Inhal Susp UD IH SCH (19:40)
[2016-10-03] MEDS: Albuterol-Ipratrop 3 mg / 0.5 (3 ml) UD IH SCH ×4 (00:44→13:11)
[2016-10-03] MEDS: MethylPREDNISolone 40 mg Vial IVP SCH ×2 (00:53→06:26)
[2016-10-03 04:54] LABS: ADD MANUAL DIFF? NO
[2016-10-03 04:56] LABS: GRAN # 8.47 (1.4-6.5); GRAN % 71.8 % (50.0-68.0); HEMATOCRIT 38.4 % (42.0-52.0); LYMPH # 1.8 (1.2-3.4); LYMPH % 14.9 % (22.0-35.0); MEAN CELL VOLUME 91.2 fL (80.0-105.0); MEAN CORPUSCULAR HEMOGLOBIN 31.6 pg (25.0-35.0); MEAN CORPUSCULAR HGB CONC 34.6 g/dl (31.0-37.0); MEAN PLATELET VOLUME 8.9 fl (7.0-11.0); MONO # 1.6 (0.1-0.6); MONO % 13.3 % (1.0-6.0); PLATELET COUNT 298 10^3/uL (120.0-450.0); RED CELL DISTRIBUTION WIDTH 12.3 % (11.5-14.5); WHITE BLOOD COUNT 11.8 10^3/ul (4.5-11.0)
[2016-10-03 05:07] LABS: ALB/GLOB RATIO 1.1 (1.1-1.8); ALKALINE PHOSPHATASE 50 U/L (38-133); ALT/SGPT 32 U/L (7-56); AST/SGOT 27 U/L (15-59); BILIRUBIN,TOTAL 1.1 mg/dL (0.2-1.3); BLOOD UREA NITROGEN 18 mg/dL (7-21); CARBON DIOXIDE 30 mmol/L (21-33); CHLORIDE 103 mmol/L (98-107); GFR AFRICAN-AMERICAN > 60; GLUCOSE,RANDOM 113 mg/dL (70-110); POTASSIUM 3.4 mmol/L (3.6-5.0); SODIUM 140 mmol/L (132-148); TOTAL PROTEIN 6.9 g/dL (5.8-8.3)
[2016-10-03 06:11] LABS: ARTERIAL BLOOD GAS HCO3 27.1 mmol/L (21-28); ARTERIAL BLOOD GAS O2 CAPACITY 16.7 mL/dl (16-24); ARTERIAL BLOOD GAS O2 CONTENT 16.6 ML/dl (15-23); ARTERIAL BLOOD GAS PH 7.55 (7.35-7.45); CARBOXYHEMOGLOBIN 1.4 % (0.5-1.5); HHB 0.8 % (0-5); METHEMOGLOBIN 0.8 % (0.0-3.0)
[2016-10-03] MEDS: Budesonide 0.5 mg/2 ml Inhal Susp UD IH SCH (07:52)
[2016-10-03] MEDS: MethylPREDNISolone 40 mg Vial IV SCH ×2 (09:00→13:22)
[2016-10-03 09:06] VITALS: BP 149/69
--- NOTE | 2016-10-03 09:13 | PN ---
DATE: 10/03/2016(600am--650am) SUBJECTIVE: The patient appears comfortable this morning. He is not short of breath at rest. OBJECTIVE: VITAL SIGNS: Temperature is 99.0, pulse 72, respirations 18, blood pressure 117 /60. Oxygen saturation on nasal cannula is 100%. HEENT: Normocephalic, atraumatic. No JVD. CARDIOVASCULAR: Positive S1, S2. No S3. LUNGS: Better breath sounds at the bases. Continued decrease in the rhonchi and wheezing. EXTREMITIES: No clubbing, cyanosis, or edema. Calves are nontender to palpation. GASTROINTESTINAL: Abdomen is soft, nontender, nondistended. Bowel sounds are positive. SKIN: No acute rash. NEUROLOGIC: Limited at the present time. PERTINENT LABORATORY DATA: Chest x-ray was done this morning and reviewed. There are no new significant infiltrates noted. Official results are pending. Arterial blood gas was also done on BiPAP (discussed with nurse). Results are: pH 7.55, pCO2 of 31, pO2 of 192. Echocardiogram was done on 10/01/2016. The systolic function is severely impaired with an ejection fraction of 25%-30%. IMPRESSION: 1. Respiratory failure. 2. Status asthmaticus. 3. Acute bronchospasm. 4. Heroin abuse. 5. Cardiomyopathy. PLAN: The patient remains extubated. He is very comfortable this morning and not short of breath at rest. Oxygen saturation on nasal cannula is now 100%. I did review the chest x-ray as above. The x-ray shows no acute infiltrates. I have also reviewed the arterial blood gas. There is a mixed disorder noted, with a decrease in the alveolar arterial gradient. I will decrease the intravenous steroids this morning. Echocardiogram is noted. Cardiology evaluation with Dr. Manning(cardiology) has been ordered. Clinical status of the patient is significantly improved -- compared to the initial presentation. However, his overall status/prognosis does remain guarded. I will discuss the above with the entire ICU team in the next few moments. I will also discuss the above with the attending physician. Juan Tate MD cc: [id number] TT: 10/03/2016 09:12:29 Confirmation # [id number] Dictation # [id number] jn MICHAEL
[2016-10-03 10:19] VITALS: PULSE 80; RESP 20; TEMP 98.8; O2SAT 98
[2016-10-03] MEDS ORDERED: Potassium Chloride 20 mEq ER Tab PO ONE ×2 (12:08→13:14)
--- NOTE | 2016-10-03 13:57 | PN ---
DATE: 10/03/2016 I saw the patient this morning in the intensive care unit, who is now being moved to the third floor, room 370. He came in with respiratory failure, intubation on the respirator, asthma, drug abuse. He is already trying to ask for discharge and he is not ready. I am concerned that he might go out and do the heroin and drugs he did before he came in. He is on Ativan, Bactroban cream , DuoNeb, heparin, potassium, Lasix, Lopressor, Protonix, Pulmicort, Solu- Medrol and Zestril. Family is with him and they want him to stay and they are trying to help him and convince him to stay. PHYSICAL EXAMINATION: VITAL SIGNS: He has a 98.8 temp, 80 pulse, 149/69 blood pressure, 20 respiratory rate, 98% O2 sat on room air. HEENT: Head is atraumatic, normocephalic. He is much more alert and awake. Throat is moist. NECK: Supple. HEART: Regular rate. LUNGS: Decreased breath sounds but clear to auscultation. No wheezes, no rhonchi, no rales. ABDOMEN: Soft, nontender, positive bowel sounds. EXTREMITIES: No edema. MEDICATIONS: He is currently on Ativan, Bactroban, DuoNeb, heparin, potassium, Lasix, Lopressor, Protonix, Pulmicort, Solu-Medrol, and Zestril. LABORATORY DATA: He has an 11.8 white count, 13.3 hemoglobin, 13.4 hematocrit with 298 platelets. Sodium 140, potassium 3.4. We will replace the potassium. BUN is 18, creatinine 0.9, GFR is greater than 60, sugar is 113. Calcium 9, total bili is 1.1. AST is 27, ALT is 32, alk phos is 50, total protein 6.9 and troponin 0.02. Urine is clean. He is being seen by pulmonary, psychiatry, mirror installer. A morning chest x-ray is pending. He had respiratory failure bronchospasm, heroin abuse, cardiomyopathy. Will get him out of the intensive care unit. We will watch him on telemetry. I am not discharging yet. Will check his labs tomorrow. Brando Echols DO cc: [id number] TT: 10/03/2016 13:57:22 Confirmation # [id number] Dictation # [id number] rn MTDD
--- NOTE | 2016-10-03 14:21 | CP.PCM.PN ---
Subjective - Date & Time of Evaluation Date of Evaluation: 10/03/16 Time of Evaluation: 14:17 - Subjective Subjective: pt was admitted for asthma , wants to sign AMA. States he feels ok and he does not want to stay any more . Objective - Vital Signs/Intake and Output Vital Signs (last 24 hours): Temp Pulse Resp BP Pulse Ox 98.8 F 80 20 149/69 98 10/03/16 10:19 10/03/16 10:19 10/03/16 10:19 10/03/16 10:19 10/03/16 10:19 Intake and Output: 10/03/16 10/03/16 06:59 18:59 Intake Total 1334 240 Output Total 1850 Balance -516 240 - Medications Medications: Current Medications Albuterol/Ipratropium (Duoneb 3 Mg/0.5 Mg (3 Ml) Ud) 3 ml IH [id number] [facility] Last Admin: 10/03/16 13:11 Dose: Not Given Budesonide (Pulmicort Respules) 0.5 mg IH [id number] [facility] Last Admin: 10/03/16 07:52 Dose: 0.5 mg Furosemide (Lasix) 20 mg PO DAILY [facility] Heparin Sodium (Porcine) (Heparin) 5,000 units SC Q8H JOBY PRN Reason: Protocol Last Admin: 10/03/16 13:23 Dose: Not Given Lisinopril (Zestril) 5 mg PO DAILY [facility] Last Admin: 10/03/16 14:05 Dose: Not Given Lorazepam (Ativan) 1 mg PO Q3H PRN PRN Reason: Anxiety Methylprednisolone (Solu-Medrol) 40 mg IV Q8 [facility] Last Admin: 10/03/16 13:22 Dose: Not Given Metoprolol Tartrate (Lopressor) 12.5 mg PO BID [facility] Mupirocin (Bactroban Ointment) 0 gm NS BID [facility] Stop: 10/07/16 10:01 Last Admin: 10/03/16 10:26 Dose: 1 applic Pantoprazole Sodium (Protonix Inj) 40 mg IVP DAILY [facility] Last Admin: 10/03/16 10:24 Dose: 40 mg Potassium Chloride (K-Dur 20 Meq Er Tab) 20 meq PO BRK [facility] - Labs Labs: 10/03/16 04:50 10/03/16 04:50 PT 11.6 Seconds (9.9-11.8) 09/30/16 13:00 INR 1.07 (0.93-1.08) 09/30/16 13:00 APTT 25.0 Seconds (23.7-30.8) 09/30/16 13:00 - Constitutional Appears: No Acute Distress - Head Exam Head Exam: NORMOCEPHALIC - Eye Exam Eye Exam: Normal appearance Pupil Exam: PERRL - ENT Exam ENT Exam: Mucous Membranes Moist - Neck Exam Neck Exam: Full ROM - Respiratory Exam Respiratory Exam: NORMAL BREATHING PATTERN - Cardiovascular Exam Cardiovascular Exam: RRR, +S1, +S2 - GI/Abdominal Exam GI & Abdominal Exam: Normal Bowel Sounds - Extremities Exam Extremities Exam: Full ROM - Neurological Exam Neurological Exam: Alert, Awake, CN II-XII Intact, Normal Gait, Oriented x3 - Psychiatric Exam Psychiatric exam: Normal Affect - Skin Skin Exam: Dry, Warm Assessment and Plan - Assessment and Plan (Free Text) Assessment: AMA. asthma. Plan: pt was informed for recurrent sob . pmd aware.
--- NOTE | 2016-10-03 15:10 | CON ---
DATE: 10/03/2016 LOCATION: The patient in ICU 128, bed 6. This consult is being done on behalf of Dr. Manning, whom I am covering. REASON FOR CONSULTATION: Cardiomyopathy. HISTORY OF PRESENT ILLNESS: The patient is a 41-year-old male who is known to have asthma, also hero in use. He came to the Emergency Room with respiratory distress after sniffing heroin. The patient was getting marked shortness of breath and he said he felt tightness in the chest after sniffing hero in. The patient had to be intubated because of respiratory acidosis and associated muscle involvemen t with shortness of breath. The patient was also diaphoretic at time of presentation in the Emergenc y Room. The patient also has some nausea and vomiting at home. The patient was intubated, and now h e is extubated. The patient's echocardiogram on 10/01/2016 showed left ventricular size is normal. There is normal left ventricle wall thickness. Systolic function is severely impaired with LV ejecti on fraction of 25% to 30% and hypokinesis. Doppler flow show grade I abnormal relaxation demetri hernandez. PAST MEDICAL HISTORY: Includes substance abuse. PERSONAL HISTORY: Denies smoking or drinking, but has heroin abuse. He used it prior to admission. ALLERGIES: No known allergies. FAMILY HISTORY: Positive for asthma. HOME MEDICATIONS: Proventil. PHYSICAL EXAMINATION: VITAL SIGNS: Blood pressure 149/69, respirations 20, pulse 80, temperature 98.8. HEAD: Normocephalic. EYES: Pupils normal. Conjunctivae normal. NOSE AND THROAT: Normal. NECK: JVP low. Carotids equal. THORAX: AP diameter normal. LUNGS: No significant rales. CARDIOVASCULAR: S1, S2. No rub. ABDOMEN: Soft, nontender, no organomegaly. EXTREMITIES: No clubbing, no cyanosis. LABORATORY DATA: WBC 11.8, hemoglobin 13.3, hematocrit 38.4, platelets 298. Sodium 140, potassium 3 .4, BUN 18, creatinine 0.9. Potassium yesterday was 3.9, random glucose 113, AST, ALT, total protein and albumin normal. Troponin negative. Chest x-ray was clear. EKG on admission showed sinus tachy cardia, biatrial enlargement, rightward axis, nonspecific ST-T changes. DIAGNOSES: Acute respiratory distress after taking heroin, status asthmaticus, acute bronchospasm, h eroin abuse, cardiomyopathy. PLAN: The patient has been successfully extubated now. The patient is getting heparin 5000 units dunn bcutaneously q. 8 hourly, DuoNeb hand nebulizer therapy. Potassium was low today so extra potassium has been given 20 this morning. We will give another 20 extra today. The patient is also on Solu-Me drol 40 mg IV q. 8 hours. We will start ELLIOT inhibitors and beta blockers and we will also add Lasix 20 mg p.o. daily and potassium 20 mEq p.o. daily and we will follow with you. I told the patient to stop the substance abuse. Brady Arnett MD cc: [id number] TT: 10/03/2016 15:09:42 Confirmation # [id number] Dictation # [id number] rajinder
[2016-10-04] MEDS ORDERED: Potassium Chloride 20 mEq ER Tab PO SCH (08:00)
--- NOTE | 2016-10-04 08:21 | RAD ---
HISTORY: follow up COMPARISON: No prior. FINDINGS: LUNGS: No active pulmonary disease. PLEURA: No significant pleural effusion identified, no pneumothorax apparent. CARDIOVASCULAR: Normal. OSSEOUS STRUCTURES: No significant abnormalities. VISUALIZED UPPER ABDOMEN: Normal. OTHER FINDINGS: None. IMPRESSION: No active disease.
--- NOTE | 2016-10-05 16:42 | PQF RESP ---
10/05/16 Dr. Echols Respiratory failure is documented throughout this chart and patient was intubated. Please specify whether respiratory failure is acute, chronic, or both. Thank you. Clarification of your documentation is requested to better reflect the severity of illness and intensity of treatment of your patient. Indicators present [] Use of Home Oxygen [] Respiratory rate > 28 or <8/min (Labored respirations) [] PCO2 > 50 mm Hg or (Hypercapnia) (somnolence) [] PaO2 < 60 mm Hg or Hypoxemia (confusion) [] ABG blood gas pH < 7.35 [] SpO2 < 90% sat on Room Air [] Cyanosis [] Unable to Speak in Full Sentences [] Use of Accessory Muscles / Tripoding [] Wheezing [] Other: [] Location in the medical record that reflects the above clinical findings: [] Treatment Provided: [] PHYSICIAN'S RESPONSE Based on your medical judgment of the clinical indicators outlined above, are you treating this patient for a known or suspected: [] Acute Respiratory Failure (hypoxia or hypercapnia) [] Chronic Respiratory Failure (hypoxia or hypercapnia) [] Acute on Chronic Respiratory Failure (hypoxia or hypercapnia) [] Hypoxemia please specify ACUTE, CHRONIC or ACUTE on CHRONIC [] Other []_ [] If unable to determine, please check the box, sign and date. Present On Admission (POA) Indicator: [] Present at the time of admission [] Not present at the time of admission [] Clinically Undetermined In responding to this query, please exercise your independent professional judgment. The fact that a question is asked does not imply that any particular answer is desired or expected. Thank you for your clarification on this documentation. If you have any questions please call:[ ] * Thank you, [ ] electrician wiring Chronic Respiratory Failure Description: Respiratory failure is a syndrome in which the respiratory system fails in one or both of its gas exchange functions: oxygenation and carbon dioxide elimination. In theory, respiratory failure is defined as a Pa02 value of <60 mm/Hg or a PaC02 of >50 mm/Hg. However, these values may be affected by renal compensation. Respiratory failure may be acute or chronic. While acute respiratory failure is characterized by life-threatening derangement in arterial blood gases and acid-base balance, the manifestations of chronic respiratory failure are less dramatic and may not be as readily apparent. Classifications: Respiratory failure may be classified as hypoxemic (usually characterized by Pa02 of <60 mm/Hg) or hypercapnic (usually characterized by PaC02 >50 mm/Hg) and either may be acute or chronic. Chronic hypercapnic respiratory failure develops over time and allows for renal compensation and an increase in bicarbonate concentration; therefore the pH is usually only slightly decreased. The distinction between acute and chronic hypoxemic respiratory failure cannot readily be made on the basis of ABGs; the clinical markers of chronic hypoxemia, such as polythycemia or cor pulmonale suggest a long standing disorder (chronic hypoxemic respiratory failure). Clinical Indicators: dyspnea at rest or "chronic" dyspnea, concomitant conditions such as polycythemia or cor pulmonale, requirement for continuous oxygen support, forced expiratory volume in one second (FEV1) of 49 or less, pursed lip breathing, "barrel" chest, hyperinflation by CXR, muscle wasting, malnutrition/obesity, poor exercise capacity, peripheral edema, description as a "blue bloater" (usually associated with chronic, obstructive bronchitis) or "pink puffer" (usually associated with emphysema) Risks: Chronic Hypoxemic Respiratory Failure - COPD, pulmonary fibrosis, asthma , pulmonary arterial hypertension, granulomatous lung diseases, congenital heart disease, bronchiectasis, kyphoscoliosis, obesity; Chronic Hypercapnic Respiratory Failure - COPD, severe asthma, myasthenia gravis, polyneuropathy, polio, head and cervical spine injuries, obesity hypoventilation syndrome. Treatment: supplemental oxygen, bronchodilators, corticosteroids, adequate nutrition, lung transplant References: Am. J. Respir. Crit. Care Med. "Global Strategy for the Diagnosis, Management and Prevention of COPD: GOLD Exectuive Summary," Amanda Adhikari Anzueto - 2007; Proceedings of the [place] [employer] "Mechanisms and Measurements of Dyspnea in COPD," Terrence - 2006; WebMD; Respiratory Failure, Breezy Rosas MD - 10/2005; Aakash's Principles of Internal Medicine, 17th edition. Acute Respiratory Failure Acute Respiratory Failure indicators include: ~Respirations >28 ~Air hunger ~Use of accessory muscles of respiration ~Inability to speak in full sentences Cyanosis ~Pulse ox <90% RA or <95% on O2 pH <7.35 or >7.45 ~pO2 < 60 mm Hg (or 10mm below COPD patient's baseline) ~pCO2 >50mm Hg (or 10mm above COPD patient's baseline) "Respiratory failure may be assigned as a principal diagnosis when it is the condition established after study to be chiefly responsible for occasioning admission to the hospital. The fact that the respiratory failure was managed without intubation and mechanical ventilation does not preclude its use." [facility], 3rd Qtr., 1988, p. 7 MTDD
--- NOTE | 2016-10-05 16:45 | PQF RESP ---
10/05/16 Dr. Echols, Respiratory failure is documented, with patient intubated and on vent. Please specify whether respiratory failure is acute, chronic, or both. Thank you. Clarification of your documentation is requested to better reflect the severity of illness and intensity of treatment of your patient. Indicators present [] Use of Home Oxygen [] Respiratory rate > 28 or <8/min (Labored respirations) [] PCO2 > 50 mm Hg or (Hypercapnia) (somnolence) ACUTE [] PaO2 < 60 mm Hg or Hypoxemia (confusion) [] ABG blood gas pH < 7.35 [] SpO2 < 90% sat on Room Air [] Cyanosis [] Unable to Speak in Full Sentences [] Use of Accessory Muscles / Tripoding [] Wheezing [] Other: [] Location in the medical record that reflects the above clinical findings: [] Treatment Provided: [] PHYSICIAN'S RESPONSE Based on your medical judgment of the clinical indicators outlined above, are you treating this patient for a known or suspected: [] Acute Respiratory Failure (hypoxia or hypercapnia) [] Chronic Respiratory Failure (hypoxia or hypercapnia) [] Acute on Chronic Respiratory Failure (hypoxia or hypercapnia) [] Hypoxemia please specify ACUTE, CHRONIC or ACUTE on CHRONIC [] Other []_ [] If unable to determine, please check the box, sign and date. Present On Admission (POA) Indicator: [] Present at the time of admission [] Not present at the time of admission [] Clinically Undetermined In responding to this query, please exercise your independent professional judgment. The fact that a question is asked does not imply that any particular answer is desired or expected. Thank you for your clarification on this documentation. If you have any questions please call:[ ] * Thank you, [ ] manager study Chronic Respiratory Failure Description: Respiratory failure is a syndrome in which the respiratory system fails in one or both of its gas exchange functions: oxygenation and carbon dioxide elimination. In theory, respiratory failure is defined as a Pa02 value of <60 mm/Hg or a PaC02 of >50 mm/Hg. However, these values may be affected by renal compensation. Respiratory failure may be acute or chronic. While acute respiratory failure is characterized by life-threatening derangement in arterial blood gases and acid-base balance, the manifestations of chronic respiratory failure are less dramatic and may not be as readily apparent. Classifications: Respiratory failure may be classified as hypoxemic (usually characterized by Pa02 of <60 mm/Hg) or hypercapnic (usually characterized by PaC02 >50 mm/Hg) and either may be acute or chronic. Chronic hypercapnic respiratory failure develops over time and allows for renal compensation and an increase in bicarbonate concentration; therefore the pH is usually only slightly decreased. The distinction between acute and chronic hypoxemic respiratory failure cannot readily be made on the basis of ABGs; the clinical markers of chronic hypoxemia, such as polythycemia or cor pulmonale suggest a long standing disorder (chronic hypoxemic respiratory failure). Clinical Indicators: dyspnea at rest or "chronic" dyspnea, concomitant conditions such as polycythemia or cor pulmonale, requirement for continuous oxygen support, forced expiratory volume in one second (FEV1) of 49 or less, pursed lip breathing, "barrel" chest, hyperinflation by CXR, muscle wasting, malnutrition/obesity, poor exercise capacity, peripheral edema, description as a "blue bloater" (usually associated with chronic, obstructive bronchitis) or "pink puffer" (usually associated with emphysema) Risks: Chronic Hypoxemic Respiratory Failure - COPD, pulmonary fibrosis, asthma , pulmonary arterial hypertension, granulomatous lung diseases, congenital heart disease, bronchiectasis, kyphoscoliosis, obesity; Chronic Hypercapnic Respiratory Failure - COPD, severe asthma, myasthenia gravis, polyneuropathy, polio, head and cervical spine injuries, obesity hypoventilation syndrome. Treatment: supplemental oxygen, bronchodilators, corticosteroids, adequate nutrition, lung transplant References: Am. J. Respir. Crit. Care Med. "Global Strategy for the Diagnosis, Management and Prevention of COPD: GOLD Exectuive Summary," Amanda Adhikari Anzueto - 2007; Proceedings of the [place] [employer] "Mechanisms and Measurements of Dyspnea in COPD," Terrence - 2006; WebMD; Respiratory Failure, Breezy Rosas MD - 10/2005; Aakash's Principles of Internal Medicine, 17th edition. Acute Respiratory Failure Acute Respiratory Failure indicators include: ~Respirations >28 ~Air hunger ~Use of accessory muscles of respiration ~Inability to speak in full sentences Cyanosis ~Pulse ox <90% RA or <95% on O2 pH <7.35 or >7.45 ~pO2 < 60 mm Hg (or 10mm below COPD patient's baseline) ~pCO2 >50mm Hg (or 10mm above COPD patient's baseline) "Respiratory failure may be assigned as a principal diagnosis when it is the condition established after study to be chiefly responsible for occasioning admission to the hospital. The fact that the respiratory failure was managed without intubation and mechanical ventilation does not preclude its use." [facility], 3rd Qtr., 1988, p. 7 MTDD
--- NOTE | 2016-10-07 09:33 | PQF RESP ---
10/07/16 Dr. Echols, Please document whether respiratory failure for this patient is acute, chronic, both. Thank you. Clarification of your documentation is requested to better reflect the severity of illness and intensity of treatment of your patient. Indicators present [] Use of Home Oxygen [] Respiratory rate > 28 or <8/min (Labored respirations) [] PCO2 > 50 mm Hg or (Hypercapnia) (somnolence) [] PaO2 < 60 mm Hg or Hypoxemia (confusion) [] ABG blood gas pH < 7.35 [] SpO2 < 90% sat on Room Air [] Cyanosis [] Unable to Speak in Full Sentences [] Use of Accessory Muscles / Tripoding [] Wheezing [] Other: [] Location in the medical record that reflects the above clinical findings: [] Treatment Provided: [] PHYSICIAN'S RESPONSE Based on your medical judgment of the clinical indicators outlined above, are you treating this patient for a known or suspected: [] Acute Respiratory Failure (hypoxia or hypercapnia) [] Chronic Respiratory Failure (hypoxia or hypercapnia) [] Acute on Chronic Respiratory Failure (hypoxia or hypercapnia) [] Hypoxemia please specify ACUTE, CHRONIC or ACUTE on CHRONIC [] Other []_ [] If unable to determine, please check the box, sign and date. Present On Admission (POA) Indicator: [] Present at the time of admission [] Not present at the time of admission [] Clinically Undetermined In responding to this query, please exercise your independent professional judgment. The fact that a question is asked does not imply that any particular answer is desired or expected. Thank you for your clarification on this documentation. If you have any questions please call:[ ] * Thank you, [ ] human resources receptionist Chronic Respiratory Failure Description: Respiratory failure is a syndrome in which the respiratory system fails in one or both of its gas exchange functions: oxygenation and carbon dioxide elimination. In theory, respiratory failure is defined as a Pa02 value of <60 mm/Hg or a PaC02 of >50 mm/Hg. However, these values may be affected by renal compensation. Respiratory failure may be acute or chronic. While acute respiratory failure is characterized by life-threatening derangement in arterial blood gases and acid-base balance, the manifestations of chronic respiratory failure are less dramatic and may not be as readily apparent. Classifications: Respiratory failure may be classified as hypoxemic (usually characterized by Pa02 of <60 mm/Hg) or hypercapnic (usually characterized by PaC02 >50 mm/Hg) and either may be acute or chronic. Chronic hypercapnic respiratory failure develops over time and allows for renal compensation and an increase in bicarbonate concentration; therefore the pH is usually only slightly decreased. The distinction between acute and chronic hypoxemic respiratory failure cannot readily be made on the basis of ABGs; the clinical markers of chronic hypoxemia, such as polythycemia or cor pulmonale suggest a long standing disorder (chronic hypoxemic respiratory failure). Clinical Indicators: dyspnea at rest or "chronic" dyspnea, concomitant conditions such as polycythemia or cor pulmonale, requirement for continuous oxygen support, forced expiratory volume in one second (FEV1) of 49 or less, pursed lip breathing, "barrel" chest, hyperinflation by CXR, muscle wasting, malnutrition/obesity, poor exercise capacity, peripheral edema, description as a "blue bloater" (usually associated with chronic, obstructive bronchitis) or "pink puffer" (usually associated with emphysema) Risks: Chronic Hypoxemic Respiratory Failure - COPD, pulmonary fibrosis, asthma , pulmonary arterial hypertension, granulomatous lung diseases, congenital heart disease, bronchiectasis, kyphoscoliosis, obesity; Chronic Hypercapnic Respiratory Failure - COPD, severe asthma, myasthenia gravis, polyneuropathy, polio, head and cervical spine injuries, obesity hypoventilation syndrome. Treatment: supplemental oxygen, bronchodilators, corticosteroids, adequate nutrition, lung transplant References: Am. J. Respir. Crit. Care Med. "Global Strategy for the Diagnosis, Management and Prevention of COPD: GOLD Exectuive Summary," Amanda Adhikari Anzueto - 2007; Proceedings of the [place] [employer] "Mechanisms and Measurements of Dyspnea in COPD," Terrence - 2006; WebMD; Respiratory Failure, Breezy Rosas MD - 10/2005; [employer]akash's Principles of Internal Medicine, 17th edition. Acute Respiratory Failure Acute Respiratory Failure indicators include: ~Respirations >28 ~Air hunger ~Use of accessory muscles of respiration ~Inability to speak in full sentences Cyanosis ~Pulse ox <90% RA or <95% on O2 pH <7.35 or >7.45 ~pO2 < 60 mm Hg (or 10mm below COPD patient's baseline) ~pCO2 >50mm Hg (or 10mm above COPD patient's baseline) "Respiratory failure may be assigned as a principal diagnosis when it is the condition established after study to be chiefly responsible for occasioning admission to the hospital. The fact that the respiratory failure was managed without intubation and mechanical ventilation does not preclude its use." [facility], 3rd Qtr., 1988, p. 7 MTDD
--- NOTE | 2016-10-16 12:04 | DS ---
AMA discharge. He AMA'd from the intensive care unit. He is a 41-year-old male who had respiratory failure, broncho spasm, heroin abuse, cardiomyopathy. We are going to get him out of the intensive care unit; he did not like that. He is going to AMA (against medical advice). He was in for respiratory failure, he w as intubated, asthma, drug abuse, and he AMA'd before treatment was finished. Brando Echols DO cc: [id number] TT: 10/16/2016 12:04:19 alina
== END 2016-10-03 14:33 | disposition left against medical advice (07) | DRG 208 ==
LOC: ED 12:30 → MERGE 12:49 → ERH 12:49 → CCU 14:50 → 3RSO 10-03 12:44
PROVIDERS: ADMIT Family Medicine; ATTEND Family Medicine
PROC: 5A1935Z Respiratory Ventilation, Less than 24 Consecutive Hours (ICD-10-PCS; principal; 2016-09-30)
PROC: 0BH17EZ Insertion of Endotracheal Airway into Trachea, Via Natural or Artificial Opening (ICD-10-PCS; 2016-09-30)
DX: J45.901 Unspecified asthma with (acute) exacerbation (principal); J96.00 Acute respiratory failure, unspecified whether with hypoxia or hypercapnia; E87.2 Acidosis; I42.9 Cardiomyopathy, unspecified; J98.11 Atelectasis; J45.902 Unspecified asthma with status asthmaticus; F11.10 Opioid abuse, uncomplicated; D72.829 Elevated white blood cell count, unspecified; T38.0X5A Adverse effect of glucocorticoids and synthetic analogues, initial encounter; Z82.5 Family history of asthma and other chronic lower respiratory diseases; R40.2412 Glasgow coma scale score 13-15, at arrival to emergency department; F41.9 Anxiety disorder, unspecified